=== PATIENT | male | born 1960 | race Hispanic/Latino ===

== ENCOUNTER 2020-12-17 14:03 | Inpatient (IN) | payer BC ==
[~2020-12-17] VITALS: Ht 165.1 cm; Wt 62.6 kg
[2020-12-17] MEDS ORDERED: SODIUM CHLORIDE 0.9% 1000ML 1,000 ML IV STA ×2 (15:45)
[2020-12-17 16:22] LABS: BASOPHILS % 0.2 % (0.0-1.0); HEMATOCRIT 40.5 % (38.2-49.6); HEMOGLOBIN 13.7 g/dL (14.0-18.0); LYMPHOCYTES # (AUTO) 0.5 (1.0-3.2); LYMPHOCYTES % 5.3 % (18.0-39.1); MEAN CORPUSCULAR HEMOGLOBIN 29.2 pg (28-32); MEAN CORPUSCULAR HGB CONC 33.8 g/dL (31-35); MEAN CORPUSCULAR VOLUME 86.4 fL (81-99); MONOCYTES # (AUTO) 0.2 (0.2-0.8); MONOCYTES % 2.2 % (4.4-11.3); NEUTROPHILS # (AUTO) 9.1 (2.1-6.9); NEUTROPHILS % 91.6 % (38.7-80.0); PLATELET COUNT 171 x10e3/uL (140-360); RED BLOOD COUNT 4.69 x10e6/uL (4.3-5.7); RED CELL DISTRIBUTION WIDTH 12.7 % (11.7-14.4)
[2020-12-17 16:38] LABS: ALBUMIN 2.8 g/dL (3.5-5.0); ALBUMIN/GLOBULIN RATIO 0.7 (0.8-2.0); ANION GAP 17.4 mmol/L (8-16); CALCIUM 8.4 mg/dL (8.4-10.2); CREATININE, SERUM 1.29 mg/dL (0.72-1.25); POTASSIUM 4.4 mmol/L (3.5-5.1)
[2020-12-17 16:45] LABS: CREATINE KINASE MB 1.7 ng/mL (0-5.0)
[2020-12-17] MEDS ORDERED: DEXAMETHASONE SOD PHOS 10 MG/1 ML VIAL IV ONE (16:45)
[2020-12-17] MEDS ORDERED: CEFTRIAXONE SOD 2 GM VIAL ONE (20:59)
[2020-12-17] MEDS ORDERED: SODIUM CHLORIDE 0.9% 0 ML ONE (20:59)
[2020-12-17] MEDS: ENOXAPARIN 30 MG/0.3 ML SYR SC SCH (21:35)
[2020-12-17 22:40] VITALS: BP 106/75
[2020-12-17] MEDS ORDERED: DEXTROSE 50% SYRINGE 50 ML IV PRN (23:00)
[2020-12-17] MEDS ORDERED: INSULIN GLARGINE 100 UNITS/ML VIAL SQ ONE (23:00)
[2020-12-17] MEDS ORDERED: ONDANSETRON HCL INJ 2MG/ML 2ML 2 MG/ML VIAL IV PRN (23:00)
[2020-12-17] MEDS ORDERED: PREDNISONE 20 MG TAB PO ONE (23:00)
[2020-12-18] VITALS (7 sets, daily range): BP systolic 95–134; BP diastolic 58–87
[2020-12-18] MEDS ORDERED: PREDNISONE 20 MG TAB PO ONE (03:30)
[2020-12-18 03:34] LABS: CREATINE KINASE MB 2.7 ng/mL (0-5.0)
[2020-12-18 05:04] LABS: BASOPHILS % 0.1 % (0.0-1.0); HEMATOCRIT 38.7 % (38.2-49.6); HEMOGLOBIN 13.2 g/dL (14.0-18.0); LYMPHOCYTES # (AUTO) 0.4 (1.0-3.2); LYMPHOCYTES % 3.3 % (18.0-39.1); MEAN CORPUSCULAR HEMOGLOBIN 29.7 pg (28-32); MEAN CORPUSCULAR HGB CONC 34.1 g/dL (31-35); MONOCYTES # (AUTO) 0.3 (0.2-0.8); MONOCYTES % 2.6 % (4.4-11.3); NEUTROPHILS # (AUTO) 10.7 (2.1-6.9); NEUTROPHILS % 93.4 % (38.7-80.0); PLATELET COUNT 209 x10e3/uL (140-360); RED BLOOD COUNT 4.45 x10e6/uL (4.3-5.7); RED CELL DISTRIBUTION WIDTH 12.7 % (11.7-14.4)
[2020-12-18 05:33] LABS: ALANINE AMINOTRANSFERASE 20 IU/L (0-55); ALBUMIN 2.6 g/dL (3.5-5.0); ALBUMIN/GLOBULIN RATIO 0.6 (0.8-2.0); ALKALINE PHOSPHATASE 55 IU/L (40-150); ANION GAP 17.5 mmol/L (8-16); BLOOD UREA NITROGEN 21 mg/dL (7-26); BUN/CREATININE RATIO 23 (6-25); CALCIUM 8.2 mg/dL (8.4-10.2); CARBON DIOXIDE 18 mmol/L (22-29); CHLORIDE 102 mmol/L (98-107); CREATININE, SERUM 0.91 mg/dL (0.72-1.25); EST GLOMERULAR FILTRATION RATE > 60 ML/MIN (60-); GLUCOSE 399 mg/dL (74-118); POTASSIUM 4.5 mmol/L (3.5-5.1); SODIUM 133 mmol/L (136-145)
[2020-12-18] MEDS: CEFTRIAXONE SOD 2 GM/NS 100 ML 100 ML IV SCH (08:42)
[2020-12-18] MEDS: ASCORBIC ACID 500 MG TAB PO SCH ×2 (08:42→17:31)
[2020-12-18] MEDS: AZITHROMYCIN 500MG/NS 250 ML 250 ML IV SCH (08:42)
[2020-12-18] MEDS: ENOXAPARIN 30 MG/0.3 ML SYR SC SCH ×2 (08:42→17:31)
[2020-12-18] MEDS: ZINC SULFATE 220 MG CAP PO SCH (08:42)
[2020-12-18] MEDS ORDERED: SODIUM CHLORIDE 0.9% 250ML 250 ML ONE (08:43)
[2020-12-18] MEDS: INSULIN REGULAR, HUMAN 100 UNIT/1 ML 3ML VIAL SQ SCH ×4 (08:43→21:54)
[2020-12-18] MEDS ORDERED: REMDESIVIR 200MG/NS 100ML 200 MG IV ONE (10:00)
[2020-12-18 11:42] LABS: CREATINE KINASE MB 2.3 ng/mL (0-5.0)
[2020-12-18] MEDS: ACETAMINOPHEN 325 MG TAB PO PRN (18:22)
[2020-12-18] MEDS: INSULIN GLARGINE 100 UNITS/ML VIAL SQ SCH (21:51)
[2020-12-19] VITALS (7 sets, daily range): BP systolic 99–139; BP diastolic 53–83
[2020-12-19] MEDS: INSULIN REGULAR, HUMAN 100 UNIT/1 ML 3ML VIAL SQ SCH ×4 (07:30→21:00)
[2020-12-19] MEDS: ASCORBIC ACID 500 MG TAB PO SCH ×2 (08:36→18:17)
[2020-12-19] MEDS: ENOXAPARIN 30 MG/0.3 ML SYR SC SCH (08:36)
[2020-12-19] MEDS: CEFTRIAXONE SOD 2 GM/NS 100 ML 100 ML IV SCH (08:36)
[2020-12-19] MEDS: ZINC SULFATE 220 MG CAP PO SCH (08:36)
[2020-12-19] MEDS: AZITHROMYCIN 500MG/NS 250 ML 250 ML IV SCH (08:36)
[2020-12-19 09:31] LABS: BASOPHILS % 0.1 % (0.0-1.0); HEMATOCRIT 37.3 % (38.2-49.6); HEMOGLOBIN 12.7 g/dL (14.0-18.0); LYMPHOCYTES # (AUTO) 0.7 (1.0-3.2); MEAN CORPUSCULAR HEMOGLOBIN 29.6 pg (28-32); MEAN CORPUSCULAR VOLUME 86.9 fL (81-99); MONOCYTES # (AUTO) 0.5 (0.2-0.8); MONOCYTES % 3.2 % (4.4-11.3); NEUTROPHILS % 90.5 % (38.7-80.0); PLATELET COUNT 233 x10e3/uL (140-360); RED BLOOD COUNT 4.29 x10e6/uL (4.3-5.7); RED CELL DISTRIBUTION WIDTH 12.9 % (11.7-14.4)
[2020-12-19 09:55] LABS: ALANINE AMINOTRANSFERASE 19 IU/L (0-55); ALBUMIN 2.2 g/dL (3.5-5.0); ALBUMIN/GLOBULIN RATIO 0.6 (0.8-2.0); ALKALINE PHOSPHATASE 46 IU/L (40-150); ANION GAP 13.8 mmol/L (8-16); BLOOD UREA NITROGEN 13 mg/dL (7-26); BUN/CREATININE RATIO 20 (6-25); CALCIUM 7.6 mg/dL (8.4-10.2); CARBON DIOXIDE 21 mmol/L (22-29); CHLORIDE 98 mmol/L (98-107); CREATININE, SERUM 0.65 mg/dL (0.72-1.25); EST GLOMERULAR FILTRATION RATE > 60 ML/MIN (60-); GLUCOSE 160 mg/dL (74-118); POTASSIUM 3.8 mmol/L (3.5-5.1); SODIUM 129 mmol/L (136-145)
[2020-12-19] MEDS: REMDESIVIR 100MG/NS 100ML 100 MG IV SCH (11:54)
[2020-12-19] MEDS: ACETAMINOPHEN 325 MG TAB PO PRN (14:45)
[2020-12-19] MEDS ORDERED: SODIUM CHLORIDE 0.9% 50ML 50 ML ONE (18:23)
[2020-12-19] MEDS ORDERED: IOPAMIDOL 370 MG/ML 200 ML INFUS..BTL INJ ONE (18:24)
[2020-12-19] MEDS: ENOXAPARIN INJ 80 MG/0.8 ML SYR SC SCH (20:56)
[2020-12-19] MEDS: INSULIN GLARGINE 100 UNITS/ML VIAL SQ SCH (21:00)
[2020-12-20] VITALS (7 sets, daily range): BP systolic 112–125; BP diastolic 71–79
[2020-12-20 05:59] LABS: BASOPHILS % 0.2 % (0.0-1.0); HEMATOCRIT 36.8 % (38.2-49.6); HEMOGLOBIN 12.6 g/dL (14.0-18.0); LYMPHOCYTES # (AUTO) 0.9 (1.0-3.2); LYMPHOCYTES % 8.7 % (18.0-39.1); MEAN CORPUSCULAR HEMOGLOBIN 29.2 pg (28-32); MEAN CORPUSCULAR HGB CONC 34.2 g/dL (31-35); MEAN CORPUSCULAR VOLUME 85.4 fL (81-99); MONOCYTES # (AUTO) 0.6 (0.2-0.8); MONOCYTES % 5.2 % (4.4-11.3); NEUTROPHILS # (AUTO) 8.7 (2.1-6.9); PLATELET COUNT 248 x10e3/uL (140-360); RED BLOOD COUNT 4.31 x10e6/uL (4.3-5.7); RED CELL DISTRIBUTION WIDTH 12.8 % (11.7-14.4)
[2020-12-20 06:28] LABS: ALANINE AMINOTRANSFERASE 21 IU/L (0-55); ALBUMIN 2.1 g/dL (3.5-5.0); ALBUMIN/GLOBULIN RATIO 0.5 (0.8-2.0); ALKALINE PHOSPHATASE 43 IU/L (40-150); ANION GAP 14.9 mmol/L (8-16); BLOOD UREA NITROGEN 10 mg/dL (7-26); BUN/CREATININE RATIO 16 (6-25); CALCIUM 7.8 mg/dL (8.4-10.2); CARBON DIOXIDE 23 mmol/L (22-29); CHLORIDE 98 mmol/L (98-107); CREATININE, SERUM 0.63 mg/dL (0.72-1.25); EST GLOMERULAR FILTRATION RATE > 60 ML/MIN (60-); GLUCOSE 112 mg/dL (74-118); POTASSIUM 3.9 mmol/L (3.5-5.1); SODIUM 132 mmol/L (136-145)
[2020-12-20] MEDS: INSULIN REGULAR, HUMAN 100 UNIT/1 ML 3ML VIAL SQ SCH ×4 (07:30→21:00)
[2020-12-20] MEDS: AZITHROMYCIN 500MG/NS 250 ML 250 ML IV SCH (08:27)
[2020-12-20] MEDS: ENOXAPARIN INJ 80 MG/0.8 ML SYR SC SCH ×2 (08:28→21:22)
[2020-12-20] MEDS: ZINC SULFATE 220 MG CAP PO SCH (08:28)
[2020-12-20] MEDS: ASCORBIC ACID 500 MG TAB PO SCH ×2 (08:28→16:39)
[2020-12-20] MEDS: CEFTRIAXONE SOD 2 GM/NS 100 ML 100 ML IV SCH (10:18)
[2020-12-20 11:26] LABS: HYPOCHROMASIA SLIGHT; LYMPHOCYTES % (MANUAL) 8 % (19-48); MONOCYTES % (MANUAL) 6 % (3.4-9.0); NEUTROPHILS % (MANUAL) 79 % (40-74); PROMYELOCYTES % (MANUAL) 4 % (0-0)
[2020-12-20 11:27] LABS: PLATELET ESTIMATE ADEQUATE; PLATELET MORPHOLOGY COMMENT FEW LARGE; RBC MORPHOLOGY COMMENT ABNORMAL
[2020-12-20] MEDS: REMDESIVIR 100MG/NS 100ML 100 MG IV SCH (11:59)
[2020-12-20] MEDS ORDERED: CHLORASEPTIC SPRAY 177 ML BTL MM PRN (17:00)
[2020-12-20] MEDS: INSULIN GLARGINE 100 UNITS/ML VIAL SQ SCH (21:00)
[2020-12-20] MEDS ORDERED: MELATONIN 5 MG TABLET PO SCH (21:00)
[2020-12-20] MEDS: ACETAMINOPHEN 325 MG TAB PO PRN (23:14)
[2020-12-21] VITALS (10 sets, daily range): BP systolic 111–158; BP diastolic 61–126
[2020-12-21 04:52] LABS: BASOPHILS # (AUTO) 0.1 (0.0-0.1); BASOPHILS % 0.4 % (0.0-1.0); EOSINOPHILS % 0.2 % (0.0-6.0); HEMATOCRIT 39.3 % (38.2-49.6); HEMOGLOBIN 13.5 g/dL (14.0-18.0); LYMPHOCYTES % 8.3 % (18.0-39.1); MEAN CORPUSCULAR HEMOGLOBIN 30.2 pg (28-32); MEAN CORPUSCULAR HGB CONC 34.4 g/dL (31-35); MEAN CORPUSCULAR VOLUME 87.9 fL (81-99); MONOCYTES # (AUTO) 0.8 (0.2-0.8); MONOCYTES % 6.3 % (4.4-11.3); NEUTROPHILS # (AUTO) 9.9 (2.1-6.9); NEUTROPHILS % 81.2 % (38.7-80.0); PLATELET COUNT 289 x10e3/uL (140-360); RED BLOOD COUNT 4.47 x10e6/uL (4.3-5.7); RED CELL DISTRIBUTION WIDTH 12.6 % (11.7-14.4)
[2020-12-21 05:13] LABS: ALANINE AMINOTRANSFERASE 27 IU/L (0-55); ALBUMIN 2.3 g/dL (3.5-5.0); ALBUMIN/GLOBULIN RATIO 0.6 (0.8-2.0); ALKALINE PHOSPHATASE 56 IU/L (40-150); ANION GAP 14.8 mmol/L (8-16); BLOOD UREA NITROGEN 11 mg/dL (7-26); BUN/CREATININE RATIO 17 (6-25); CARBON DIOXIDE 24 mmol/L (22-29); CHLORIDE 97 mmol/L (98-107); CREATININE, SERUM 0.63 mg/dL (0.72-1.25); EST GLOMERULAR FILTRATION RATE > 60 ML/MIN (60-); GLUCOSE 118 mg/dL (74-118); POTASSIUM 3.8 mmol/L (3.5-5.1); SODIUM 132 mmol/L (136-145)
[2020-12-21] MEDS: ZINC SULFATE 220 MG CAP PO SCH (08:46)
[2020-12-21] MEDS: ENOXAPARIN INJ 80 MG/0.8 ML SYR SC SCH ×2 (08:46→21:17)
[2020-12-21] MEDS: CEFTRIAXONE SOD 2 GM/NS 100 ML 100 ML IV SCH (08:46)
[2020-12-21] MEDS: ASCORBIC ACID 500 MG TAB PO SCH ×2 (08:46→16:53)
[2020-12-21] MEDS: INSULIN REGULAR, HUMAN 100 UNIT/1 ML 3ML VIAL SQ SCH ×4 (08:47→20:30)
[2020-12-21] MEDS: REMDESIVIR 100MG/NS 100ML 100 MG IV SCH (10:06)
[2020-12-21] MEDS: AZITHROMYCIN 500MG/NS 250 ML 250 ML IV SCH (11:11)
[2020-12-21] MEDS: ZOLPIDEM TARTRATE 5 MG TAB PO SCH (21:00)
[2020-12-21] MEDS: INSULIN GLARGINE 100 UNITS/ML VIAL SQ SCH (21:21)
[2020-12-22] VITALS (23 sets, daily range): BP systolic 76–135; BP diastolic 59–77
[2020-12-22] MEDS ORDERED: DEXMEDETOMIDINE 200MCG/NS 50ML 50 ML IV ONE ×2 (00:20→04:20)
[2020-12-22] MEDS: DEXMEDETOMIDINE HCL 200 MCG in SODIUM CHLORIDE 0.9% 50ML 48 ML IV SCH ×2 (01:28→04:26)
[2020-12-22 05:00] LABS: BASOPHILS % 0.3 % (0.0-1.0); EOSINOPHILS % 0.1 % (0.0-6.0); HEMATOCRIT 36.3 % (38.2-49.6); HEMOGLOBIN 12.6 g/dL (14.0-18.0); LYMPHOCYTES # (AUTO) 1.3 (1.0-3.2); MEAN CORPUSCULAR HGB CONC 34.7 g/dL (31-35); MEAN CORPUSCULAR VOLUME 86.4 fL (81-99); MONOCYTES # (AUTO) 0.7 (0.2-0.8); MONOCYTES % 4.2 % (4.4-11.3); NEUTROPHILS # (AUTO) 13.2 (2.1-6.9); NEUTROPHILS % 84.4 % (38.7-80.0); PLATELET COUNT 304 x10e3/uL (140-360); RED CELL DISTRIBUTION WIDTH 12.6 % (11.7-14.4)
[2020-12-22 05:10] LABS: INR 1.19; PROTHROMBIN TIME 15.9 seconds (11.9-14.5)
[2020-12-22 05:11] LABS: PARTIAL THROMBOPLASTIN TIME 31.4 seconds (23.8-35.5)
[2020-12-22 05:34] LABS: ALANINE AMINOTRANSFERASE 27 IU/L (0-55); ALBUMIN/GLOBULIN RATIO 0.5 (0.8-2.0); ALKALINE PHOSPHATASE 68 IU/L (40-150); ANION GAP 14.7 mmol/L (8-16); BLOOD UREA NITROGEN 8 mg/dL (7-26); BUN/CREATININE RATIO 14 (6-25); CARBON DIOXIDE 26 mmol/L (22-29); CHLORIDE 101 mmol/L (98-107); CREATININE, SERUM 0.59 mg/dL (0.72-1.25); EST GLOMERULAR FILTRATION RATE > 60 ML/MIN (60-); GLUCOSE 82 mg/dL (74-118); POTASSIUM 3.7 mmol/L (3.5-5.1); SODIUM 138 mmol/L (136-145)
[2020-12-22] MEDS ORDERED: SIMVASTATIN20 MG PO (06:38)
[2020-12-22] MEDS ORDERED: JANUVIA100 MG PO (06:38)
[2020-12-22] MEDS ORDERED: METFORMIN HCL1000 MG PO (06:38)
[2020-12-22] MEDS ORDERED: PIOGLITAZONE HC15 MG PO (06:38)
[2020-12-22] MEDS ORDERED: GLYBURIDE5 MG PO (06:38)
[2020-12-22] MEDS ORDERED: ENALAPRIL MALE2.5 MG PO (06:38)
[2020-12-22] MEDS: INSULIN REGULAR, HUMAN 100 UNIT/1 ML 3ML VIAL SQ SCH ×4 (07:30→21:48)
[2020-12-22 07:45] LABS: LYMPHOCYTES % (MANUAL) 5 % (19-48); METAMYELOCYTES % (MANUAL) 1 % (0-0); MONOCYTES % (MANUAL) 4 % (3.4-9.0); NEUTROPHILS % (MANUAL) 89 % (40-74)
[2020-12-22 07:46] LABS: PLATELET ESTIMATE ADEQUATE; PLATELET MORPHOLOGY COMMENT NORMAL; RBC MORPHOLOGY COMMENT NORMAL
[2020-12-22] MEDS: REMDESIVIR 100MG/NS 100ML 100 MG IV SCH (09:08)
[2020-12-22] MEDS: FAMOTIDINE 20 MG/2 ML VIAL IV SCH (09:08)
[2020-12-22] MEDS: ENOXAPARIN INJ 80 MG/0.8 ML SYR SC SCH ×2 (09:08→21:47)
[2020-12-22] MEDS: ASCORBIC ACID 500 MG TAB PO SCH ×2 (09:08→16:40)
[2020-12-22] MEDS: AZITHROMYCIN 500MG/NS 250 ML 250 ML IV SCH (09:08)
[2020-12-22] MEDS: ZINC SULFATE 220 MG CAP PO SCH (09:08)
[2020-12-22] MEDS: CEFTRIAXONE SOD 2 GM/NS 100 ML 100 ML IV SCH (09:08)
[2020-12-22] MEDS: CHOLECALCIFEROL 400 UNIT TAB PO SCH (09:08)
[2020-12-22] MEDS ORDERED: DEXMEDETOMIDINE 200MCG/NS 50ML 50 ML IV SCH (09:15)
[2020-12-22] MEDS ORDERED: SODIUM CHLORIDE 0.9% 1000ML 1,000 ML ONE (10:28)
[2020-12-22] MEDS: FENTANYL 2000MCG/NS 250 250 ML IV SCH ×2 (11:25→17:36)
[2020-12-22] MEDS: MIDAZOLAM HCL 5MG/ML 10ML VIAL 100 ML IV SCH ×3 (11:26→21:50)
[2020-12-22] MEDS ORDERED: LACTATED RINGER'S 1,000 ML INJ STA (12:32)
[2020-12-22] MEDS: ACETAMINOPHEN 325 MG TAB PO PRN ×2 (13:28→23:00)
[2020-12-22] MEDS ORDERED: NOREPINEPHRINE 8 MG/D5W 250 ML 250 ML ONE (14:42)
[2020-12-22] MEDS: NOREPINEPHRINE 8 MG/D5W 250 ML 250 ML IV SCH (15:02)
[2020-12-22 16:16] LABS: ABG HCO3 26 mmol/L (22-26); ABG PCO2 50 mmHg (35-45); ABG PH 7.33 (7.35-7.45); ABG PO2 66 mmHg (80-105); ABG TCO2 28
[2020-12-22] MEDS: ROCURONIUM BROMIDE 1,250 MG in SODIUM CHLORIDE 0.9% 250ML 125 ML IV SCH (16:28)
[2020-12-22 17:12] LABS: CLARITY,URINE SL CLOUDY (CLEAR); COLOR,URINE YELLOW (YELLOW); KETONES,URINE 1+ (NEGATIVE); LEUKOCYTE ESTERASE ,URINE NEGATIVE (NEGATIVE); NITRITE,URINE NEGATIVE (NEGATIVE); PROTEIN,URINE DIPSTICK 2+ (NEGATIVE); URINE UROBILINOGEN 0.2 mg/dL (0.2 - 1)
[2020-12-22 17:27] LABS: AMORPHOUS SEDIMENT,URINE MODERATE (FEW); BACTERIA,URINE MODERATE /HPF; RBC,URINE 0-5 /HPF (0-5)
[2020-12-22] MEDS: ZOLPIDEM TARTRATE 5 MG TAB PO SCH (21:00)
[2020-12-22] MEDS: INSULIN GLARGINE 100 UNITS/ML VIAL SQ SCH (21:49)
[2020-12-23] VITALS (16 sets, daily range): BP systolic 93–148; BP diastolic 59–76
[2020-12-23] MEDS: FENTANYL 2000MCG/NS 250 250 ML IV SCH ×3 (02:06→20:20)
[2020-12-23] MEDS: MIDAZOLAM HCL 5MG/ML 10ML VIAL 100 ML IV SCH ×3 (04:55→20:20)
[2020-12-23 05:08] LABS: BASOPHILS % 0.2 % (0.0-1.0); EOSINOPHILS # (AUTO) 0.1 (0.0-0.4); EOSINOPHILS % 0.6 % (0.0-6.0); HEMATOCRIT 39.8 % (38.2-49.6); HEMOGLOBIN 13.2 g/dL (14.0-18.0); LYMPHOCYTES # (AUTO) 0.9 (1.0-3.2); LYMPHOCYTES % 5.1 % (18.0-39.1); MEAN CORPUSCULAR HEMOGLOBIN 31.1 pg (28-32); MEAN CORPUSCULAR HGB CONC 33.2 g/dL (31-35); MEAN CORPUSCULAR VOLUME 93.6 fL (81-99); MONOCYTES # (AUTO) 0.9 (0.2-0.8); MONOCYTES % 5.2 % (4.4-11.3); NEUTROPHILS # (AUTO) 15.8 (2.1-6.9); NEUTROPHILS % 87.8 % (38.7-80.0); PLATELET COUNT 216 x10e3/uL (140-360); RED BLOOD COUNT 4.25 x10e6/uL (4.3-5.7); RED CELL DISTRIBUTION WIDTH 12.4 % (11.7-14.4)
[2020-12-23] MEDS: ACETAMINOPHEN 325 MG TAB PO PRN ×2 (05:22→14:26)
[2020-12-23 05:31] LABS: ALANINE AMINOTRANSFERASE 294 IU/L (0-55); ALBUMIN 1.9 g/dL (3.5-5.0); ALBUMIN/GLOBULIN RATIO 0.5 (0.8-2.0); ALKALINE PHOSPHATASE 86 IU/L (40-150); ANION GAP 15.7 mmol/L (8-16); BLOOD UREA NITROGEN 26 mg/dL (7-26); BUN/CREATININE RATIO 41 (6-25); CALCIUM 7.9 mg/dL (8.4-10.2); CARBON DIOXIDE 25 mmol/L (22-29); CHLORIDE 104 mmol/L (98-107); CREATININE, SERUM 0.63 mg/dL (0.72-1.25); EST GLOMERULAR FILTRATION RATE > 60 ML/MIN (60-); GLUCOSE 100 mg/dL (74-118); POTASSIUM 4.7 mmol/L (3.5-5.1); SODIUM 140 mmol/L (136-145)
[2020-12-23] MEDS: INSULIN REGULAR, HUMAN 100 UNIT/1 ML 3ML VIAL SQ SCH ×4 (07:15→21:30)
[2020-12-23] MEDS: CHOLECALCIFEROL 400 UNIT TAB PO SCH (08:09)
[2020-12-23] MEDS: DEXAMETHASONE SOD PHOS 10 MG/1 ML VIAL IV SCH (08:09)
[2020-12-23] MEDS: FAMOTIDINE 20 MG/2 ML VIAL IV SCH (08:09)
[2020-12-23] MEDS: ASCORBIC ACID 500 MG TAB PO SCH ×2 (08:09→16:10)
[2020-12-23] MEDS: ZINC SULFATE 220 MG CAP PO SCH (08:10)
[2020-12-23] MEDS: ENOXAPARIN INJ 80 MG/0.8 ML SYR SC SCH ×2 (08:10→21:00)
[2020-12-23] MEDS: REMDESIVIR 100MG/NS 100ML 100 MG IV SCH (09:43)
[2020-12-23 10:12] LABS: ABG PCO2 64 mmHg (35-45); ABG PH 7.22 (7.35-7.45); ABG PO2 57 mmHg (80-105)
[2020-12-23 10:13] LABS: ABG HCO3 26 mmol/L (22-26); ABG TCO2 28
[2020-12-23] MEDS ORDERED: ALBUMIN 25% 25GM 100ML 0.25 GM/ML BTL IV SCH (10:30)
[2020-12-23] MEDS: VANCOMYCIN 1GM/NS 250 ML 250 ML IV SCH (11:57)
[2020-12-23] MEDS: ALBUMIN 25% 25GM 100ML 100 ML IV SCH ×2 (11:57→18:41)
[2020-12-23] MEDS: FUROSEMIDE INJ 10 MG/ML 4 ML VIAL IV SCH (11:57)
[2020-12-23] MEDS: MEROPENEM 1GM 100 ML IV SCH ×2 (11:57→17:01)
[2020-12-23] MEDS: ROCURONIUM BROMIDE 1,250 MG in SODIUM CHLORIDE 0.9% 250ML 125 ML IV SCH (12:29)
[2020-12-23 16:27] LABS: ABG HCO3 31 mmol/L (22-26); ABG PCO2 64 mmHg (35-45); ABG PO2 80 mmHg (80-105); ABG TCO2 33
[2020-12-23] MEDS: ZOLPIDEM TARTRATE 5 MG TAB PO SCH (21:00)
[2020-12-23] MEDS: INSULIN GLARGINE 100 UNITS/ML VIAL SQ SCH (21:30)
[2020-12-23] MEDS ORDERED: FUROSEMIDE INJ 10 MG/ML 4 ML VIAL ONE (22:21)
[2020-12-24] VITALS (16 sets, daily range): BP systolic 89–132; BP diastolic 59–70
[2020-12-24] MEDS: FUROSEMIDE INJ 10 MG/ML 4 ML VIAL IV SCH (00:34)
[2020-12-24] MEDS: VANCOMYCIN 1GM/NS 250 ML 250 ML IV SCH ×3 (00:53→23:24)
[2020-12-24] MEDS: NOREPINEPHRINE 8 MG/D5W 250 ML 250 ML IV SCH ×2 (00:53→14:45)
[2020-12-24] MEDS: MEROPENEM 1GM 100 ML IV SCH ×3 (02:30→17:09)
[2020-12-24] MEDS: MIDAZOLAM HCL 5MG/ML 10ML VIAL 100 ML IV SCH ×4 (03:45→23:09)
[2020-12-24] MEDS: FENTANYL 2000MCG/NS 250 250 ML IV SCH ×3 (03:45→21:06)
[2020-12-24] MEDS: ALBUMIN 25% 25GM 100ML 100 ML IV SCH (04:12)
[2020-12-24 06:56] LABS: BASOPHILS % 0.1 % (0.0-1.0); HEMATOCRIT 28.9 % (38.2-49.6); HEMOGLOBIN 9.3 g/dL (14.0-18.0); LYMPHOCYTES # (AUTO) 0.6 (1.0-3.2); LYMPHOCYTES % 3.5 % (18.0-39.1); MEAN CORPUSCULAR HEMOGLOBIN 29.4 pg (28-32); MEAN CORPUSCULAR HGB CONC 32.2 g/dL (31-35); MEAN CORPUSCULAR VOLUME 91.5 fL (81-99); MONOCYTES # (AUTO) 0.3 (0.2-0.8); MONOCYTES % 2.1 % (4.4-11.3); NEUTROPHILS # (AUTO) 14.6 (2.1-6.9); NEUTROPHILS % 92.6 % (38.7-80.0); PLATELET COUNT 209 x10e3/uL (140-360); RED BLOOD COUNT 3.16 x10e6/uL (4.3-5.7); RED CELL DISTRIBUTION WIDTH 13.7 % (11.7-14.4)
[2020-12-24 07:00] LABS: ABG PCO2 55 mmHg (35-45); ABG PH 7.38 (7.35-7.45); ABG PO2 75 mmHg (80-105)
[2020-12-24 07:01] LABS: ABG HCO3 32 mmol/L (22-26); ABG TCO2 34
[2020-12-24 07:22] LABS: ALANINE AMINOTRANSFERASE 19 IU/L (0-55); ALBUMIN 2.3 g/dL (3.5-5.0); ALBUMIN/GLOBULIN RATIO 0.7 (0.8-2.0); ALKALINE PHOSPHATASE 71 IU/L (40-150); ANION GAP 12.9 mmol/L (8-16); BLOOD UREA NITROGEN 20 mg/dL (7-26); BUN/CREATININE RATIO 24 (6-25); CALCIUM 7.2 mg/dL (8.4-10.2); CARBON DIOXIDE 30 mmol/L (22-29); CHLORIDE 100 mmol/L (98-107); CREATININE, SERUM 0.83 mg/dL (0.72-1.25); EST GLOMERULAR FILTRATION RATE > 60 ML/MIN (60-); GLUCOSE 339 mg/dL (74-118); POTASSIUM 3.9 mmol/L (3.5-5.1); SODIUM 139 mmol/L (136-145)
[2020-12-24] MEDS: INSULIN REGULAR, HUMAN 100 UNIT/1 ML 3ML VIAL SQ SCH ×4 (07:29→21:05)
[2020-12-24] MEDS: ENOXAPARIN INJ 80 MG/0.8 ML SYR SC SCH ×2 (08:00→21:05)
[2020-12-24] MEDS: ASCORBIC ACID 500 MG TAB PO SCH ×2 (08:00→16:17)
[2020-12-24] MEDS: DEXAMETHASONE SOD PHOS 10 MG/1 ML VIAL IV SCH (08:00)
[2020-12-24] MEDS: FAMOTIDINE 20 MG/2 ML VIAL IV SCH (08:00)
[2020-12-24] MEDS: CHOLECALCIFEROL 400 UNIT TAB PO SCH (08:00)
[2020-12-24] MEDS: ZINC SULFATE 220 MG CAP PO SCH (08:00)
[2020-12-24 09:58] LABS: LYMPHOCYTES % (MANUAL) 1 % (19-48); MONOCYTES % (MANUAL) 3 % (3.4-9.0); NEUTROPHILS % (MANUAL) 95 % (40-74); PLATELET ESTIMATE ADEQUATE; RBC MORPHOLOGY COMMENT NORMAL
[2020-12-24 09:59] LABS: PLATELET MORPHOLOGY COMMENT FEW EDTA CLUMPING
[2020-12-24] MEDS: ROCURONIUM BROMIDE 1,250 MG in SODIUM CHLORIDE 0.9% 250ML 125 ML IV SCH (10:47)
[2020-12-24] MEDS: ZOLPIDEM TARTRATE 5 MG TAB PO SCH (21:00)
[2020-12-24] MEDS: INSULIN GLARGINE 100 UNITS/ML VIAL SQ SCH (21:05)
[2020-12-25] VITALS (22 sets, daily range): BP systolic 94–153; BP diastolic 54–71
[2020-12-25] MEDS: MEROPENEM 1GM 100 ML IV SCH ×2 (02:34→16:08)
[2020-12-25] MEDS: MIDAZOLAM HCL 5MG/ML 10ML VIAL 100 ML IV SCH ×2 (04:05→09:28)
[2020-12-25] MEDS: FENTANYL 2000MCG/NS 250 250 ML IV SCH ×2 (04:05→17:19)
[2020-12-25 05:40] LABS: BASOPHILS % 0.2 % (0.0-1.0); HEMATOCRIT 31.2 % (38.2-49.6); HEMOGLOBIN 9.9 g/dL (14.0-18.0); LYMPHOCYTES # (AUTO) 0.7 (1.0-3.2); LYMPHOCYTES % 3.6 % (18.0-39.1); MEAN CORPUSCULAR HEMOGLOBIN 29.6 pg (28-32); MEAN CORPUSCULAR HGB CONC 31.7 g/dL (31-35); MEAN CORPUSCULAR VOLUME 93.1 fL (81-99); MONOCYTES # (AUTO) 0.5 (0.2-0.8); MONOCYTES % 2.5 % (4.4-11.3); NEUTROPHILS # (AUTO) 16.9 (2.1-6.9); NEUTROPHILS % 92.6 % (38.7-80.0); PLATELET COUNT 241 x10e3/uL (140-360); RED BLOOD COUNT 3.35 x10e6/uL (4.3-5.7); RED CELL DISTRIBUTION WIDTH 13.9 % (11.7-14.4)
[2020-12-25 06:02] LABS: ALANINE AMINOTRANSFERASE 20 IU/L (0-55); ALBUMIN 2.1 g/dL (3.5-5.0); ALBUMIN/GLOBULIN RATIO 0.5 (0.8-2.0); ALKALINE PHOSPHATASE 78 IU/L (40-150); ANION GAP 11.6 mmol/L (8-16); BLOOD UREA NITROGEN 34 mg/dL (7-26); BUN/CREATININE RATIO 44 (6-25); CALCIUM 7.5 mg/dL (8.4-10.2); CARBON DIOXIDE 33 mmol/L (22-29); CHLORIDE 103 mmol/L (98-107); CREATININE, SERUM 0.77 mg/dL (0.72-1.25); EST GLOMERULAR FILTRATION RATE > 60 ML/MIN (60-); GLUCOSE 187 mg/dL (74-118); POTASSIUM 4.6 mmol/L (3.5-5.1); SODIUM 143 mmol/L (136-145)
[2020-12-25 06:38] LABS: ABG HCO3 34 mmol/L (22-26); ABG PCO2 62 mmHg (35-45); ABG PH 7.35 (7.35-7.45); ABG PO2 76 mmHg (80-105); ABG TCO2 36
[2020-12-25] MEDS: DEXAMETHASONE SOD PHOS 10 MG/1 ML VIAL IV SCH (08:00)
[2020-12-25] MEDS: FAMOTIDINE 20 MG/2 ML VIAL IV SCH (08:00)
[2020-12-25] MEDS: CHOLECALCIFEROL 400 UNIT TAB PO SCH (08:00)
[2020-12-25] MEDS: ZINC SULFATE 220 MG CAP PO SCH (08:01)
[2020-12-25] MEDS: ASCORBIC ACID 500 MG TAB PO SCH ×2 (08:01→16:06)
[2020-12-25] MEDS: ENOXAPARIN INJ 80 MG/0.8 ML SYR SC SCH ×2 (08:01→20:35)
[2020-12-25] MEDS: ROCURONIUM BROMIDE 1,250 MG in SODIUM CHLORIDE 0.9% 250ML 125 ML IV SCH (09:21)
[2020-12-25] MEDS: INSULIN REGULAR, HUMAN 100 UNIT/1 ML 3ML VIAL SQ SCH ×2 (12:00→20:34)
[2020-12-25] MEDS: NOREPINEPHRINE 8 MG/D5W 250 ML 250 ML IV SCH (14:45)
[2020-12-25] MEDS: VANCOMYCIN 1GM/NS 250 ML 250 ML IV SCH ×2 (16:08→23:21)
[2020-12-25] MEDS: INSULIN GLARGINE 100 UNITS/ML VIAL SQ SCH (20:35)
[2020-12-25] MEDS: ZOLPIDEM TARTRATE 5 MG TAB PO SCH (20:35)
[2020-12-26] VITALS (16 sets, daily range): BP systolic 90–114; BP diastolic 45–73
[2020-12-26] MEDS: INSULIN REGULAR, HUMAN 100 UNIT/1 ML 3ML VIAL SQ SCH ×4 (00:20→18:00)
[2020-12-26] MEDS: MEROPENEM 1GM 100 ML IV SCH ×3 (01:08→18:43)
[2020-12-26 06:52] LABS: BASOPHILS % 0.1 % (0.0-1.0); HEMATOCRIT 33.7 % (38.2-49.6); HEMOGLOBIN 10.5 g/dL (14.0-18.0); LYMPHOCYTES # (AUTO) 0.4 (1.0-3.2); LYMPHOCYTES % 3.8 % (18.0-39.1); MEAN CORPUSCULAR HEMOGLOBIN 29.6 pg (28-32); MEAN CORPUSCULAR HGB CONC 31.2 g/dL (31-35); MEAN CORPUSCULAR VOLUME 94.9 fL (81-99); MONOCYTES # (AUTO) 0.4 (0.2-0.8); MONOCYTES % 3.7 % (4.4-11.3); NEUTROPHILS # (AUTO) 10.5 (2.1-6.9); NEUTROPHILS % 91.8 % (38.7-80.0); PLATELET COUNT 279 x10e3/uL (140-360); RED BLOOD COUNT 3.55 x10e6/uL (4.3-5.7); RED CELL DISTRIBUTION WIDTH 13.9 % (11.7-14.4)
[2020-12-26 07:02] LABS: ALANINE AMINOTRANSFERASE 35 IU/L (0-55); ALBUMIN 1.9 g/dL (3.5-5.0); ALBUMIN/GLOBULIN RATIO 0.5 (0.8-2.0); ALKALINE PHOSPHATASE 106 IU/L (40-150); BLOOD UREA NITROGEN 38 mg/dL (7-26); BUN/CREATININE RATIO 53 (6-25); CALCIUM 7.4 mg/dL (8.4-10.2); CARBON DIOXIDE 33 mmol/L (22-29); CHLORIDE 104 mmol/L (98-107); CREATININE, SERUM 0.72 mg/dL (0.72-1.25); EST GLOMERULAR FILTRATION RATE > 60 ML/MIN (60-); GLUCOSE 257 mg/dL (74-118); SODIUM 143 mmol/L (136-145)
[2020-12-26 08:43] LABS: ABG HCO3 35 mmol/L (22-26); ABG PCO2 65 mmHg (35-45); ABG PH 7.34 (7.35-7.45); ABG PO2 79 mmHg (80-105); ABG TCO2 37
[2020-12-26] MEDS: CHOLECALCIFEROL 400 UNIT TAB PO SCH (08:54)
[2020-12-26] MEDS: FAMOTIDINE 20 MG/2 ML VIAL IV SCH (08:54)
[2020-12-26] MEDS: ZINC SULFATE 220 MG CAP PO SCH (08:54)
[2020-12-26] MEDS: DEXAMETHASONE SOD PHOS 10 MG/1 ML VIAL IV SCH (08:54)
[2020-12-26] MEDS: ASCORBIC ACID 500 MG TAB PO SCH ×2 (08:54→18:43)
[2020-12-26] MEDS: ENOXAPARIN INJ 80 MG/0.8 ML SYR SC SCH ×2 (08:54→21:16)
[2020-12-26] MEDS: ACETAZOLAMIDE 250 MG TAB PO SCH ×2 (12:22→21:16)
[2020-12-26] MEDS: FUROSEMIDE INJ 10 MG/ML 4 ML VIAL IV SCH ×2 (12:22→21:16)
[2020-12-26] MEDS: ALBUMIN 25% 25GM 100ML 0.25 GM/ML BTL IV SCH ×3 (12:22→21:18)
[2020-12-26] MEDS: VANCOMYCIN 1GM/NS 250 ML 250 ML IV SCH (12:22)
[2020-12-26] MEDS ORDERED: MIDAZOLAM HCL 5MG/ML 10ML VIAL 100 ML BAG IV ONE (12:24)
[2020-12-26] MEDS ORDERED: FENTANYL 2,000 MCG/250 ML BAG ONE (12:24)
[2020-12-26] MEDS ORDERED: VECURONIUM BROMIDE FOR INJ 20 MG VIAL ONE (14:01)
[2020-12-26] MEDS ORDERED: SUCCINYLCHOLINE CHLORIDE 20 MG/ML 10ML VIAL ONE (14:01)
[2020-12-26] MEDS ORDERED: WATER STERILE 10 ML VIAL ONE (14:01)
[2020-12-26] MEDS ORDERED: MIDAZOLAM HCL 2 MG/2 ML VIAL ONE (14:01)
[2020-12-26] MEDS ORDERED: ETOMIDATE 2 MG/ML 10 ML INJ IV ONE (14:01)
[2020-12-26] MEDS: MIDAZOLAM HCL 5MG/ML 10ML VIAL 100 ML IV SCH (17:53)
[2020-12-26] MEDS: ZOLPIDEM TARTRATE 5 MG TAB PO SCH (21:00)
[2020-12-26] MEDS: ROCURONIUM BROMIDE 1,250 MG in SODIUM CHLORIDE 0.9% 250ML 125 ML IV SCH (21:16)
[2020-12-26] MEDS: INSULIN GLARGINE 100 UNITS/ML VIAL SQ SCH (21:16)
[2020-12-27] VITALS (25 sets, daily range): BP systolic 92–189; BP diastolic 51–89
[2020-12-27] MEDS: VANCOMYCIN 1GM/NS 250 ML 250 ML IV SCH ×2 (00:12→12:30)
[2020-12-27] MEDS: INSULIN REGULAR, HUMAN 100 UNIT/1 ML 3ML VIAL SQ SCH ×4 (00:22→17:30)
[2020-12-27] MEDS: MEROPENEM 1GM 100 ML IV SCH ×3 (01:22→17:29)
[2020-12-27 06:34] LABS: BASOPHILS % 0.1 % (0.0-1.0); HEMATOCRIT 32.8 % (38.2-49.6); HEMOGLOBIN 10.1 g/dL (14.0-18.0); LYMPHOCYTES # (AUTO) 0.8 (1.0-3.2); LYMPHOCYTES % 7.3 % (18.0-39.1); MEAN CORPUSCULAR HEMOGLOBIN 29.5 pg (28-32); MEAN CORPUSCULAR HGB CONC 30.8 g/dL (31-35); MEAN CORPUSCULAR VOLUME 95.9 fL (81-99); MONOCYTES # (AUTO) 0.4 (0.2-0.8); MONOCYTES % 3.5 % (4.4-11.3); NEUTROPHILS # (AUTO) 9.8 (2.1-6.9); NEUTROPHILS % 87.9 % (38.7-80.0); PLATELET COUNT 277 x10e3/uL (140-360); RED BLOOD COUNT 3.42 x10e6/uL (4.3-5.7)
[2020-12-27 06:57] LABS: ALANINE AMINOTRANSFERASE 56 IU/L (0-55); ALBUMIN 2.7 g/dL (3.5-5.0); ALBUMIN/GLOBULIN RATIO 0.8 (0.8-2.0); ALKALINE PHOSPHATASE 121 IU/L (40-150); ANION GAP 10.4 mmol/L (8-16); BLOOD UREA NITROGEN 36 mg/dL (7-26); BUN/CREATININE RATIO 51 (6-25); CALCIUM 7.7 mg/dL (8.4-10.2); CARBON DIOXIDE 33 mmol/L (22-29); CHLORIDE 102 mmol/L (98-107); CREATININE, SERUM 0.71 mg/dL (0.72-1.25); EST GLOMERULAR FILTRATION RATE > 60 ML/MIN (60-); GLUCOSE 99 mg/dL (74-118); POTASSIUM 4.4 mmol/L (3.5-5.1); SODIUM 141 mmol/L (136-145)
[2020-12-27] MEDS: MIDAZOLAM HCL 5MG/ML 10ML VIAL 100 ML IV SCH ×2 (08:06→20:26)
[2020-12-27 08:11] LABS: ABG HCO3 35 mmol/L (22-26); ABG PCO2 63 mmHg (35-45); ABG PH 7.35 (7.35-7.45); ABG PO2 96 mmHg (80-105); ABG TCO2 37
[2020-12-27] MEDS: CHOLECALCIFEROL 400 UNIT TAB PO SCH (09:08)
[2020-12-27] MEDS: ASCORBIC ACID 500 MG TAB PO SCH ×2 (09:08→17:29)
[2020-12-27] MEDS: ENOXAPARIN INJ 80 MG/0.8 ML SYR SC SCH ×2 (09:08→20:22)
[2020-12-27] MEDS: ZINC SULFATE 220 MG CAP PO SCH (09:08)
[2020-12-27] MEDS: FAMOTIDINE 20 MG/2 ML VIAL IV SCH (09:08)
[2020-12-27] MEDS: ACETAZOLAMIDE 250 MG TAB PO SCH ×2 (09:08→20:22)
[2020-12-27] MEDS: DEXAMETHASONE SOD PHOS 10 MG/1 ML VIAL IV SCH (09:08)
[2020-12-27] MEDS: FENTANYL 2000MCG/NS 250 250 ML IV SCH (10:14)
[2020-12-27] MEDS: HYDRALAZINE HCL 20 MG/ML VIAL IV PRN (10:50)
[2020-12-27] MEDS ORDERED: PROPOFOL IV EMULSION 10MG/ML 100 ML IV PRN (12:00)
[2020-12-27] MEDS: ROCURONIUM BROMIDE 1,250 MG in SODIUM CHLORIDE 0.9% 250ML 125 ML IV SCH (16:07)
[2020-12-27] MEDS: ZOLPIDEM TARTRATE 5 MG TAB PO SCH (20:22)
[2020-12-27] MEDS: PROPOFOL IV EMULSION 100 ML IV PRN (20:23)
[2020-12-27] MEDS: INSULIN GLARGINE 100 UNITS/ML VIAL SQ SCH (20:35)
[2020-12-28] VITALS (27 sets, daily range): BP systolic 11–164; BP diastolic 58–76
[2020-12-28] MEDS: INSULIN REGULAR, HUMAN 100 UNIT/1 ML 3ML VIAL SQ SCH ×4 (00:12→18:16)
[2020-12-28] MEDS: FENTANYL 2000MCG/NS 250 250 ML IV SCH ×4 (00:13→20:49)
[2020-12-28] MEDS: VANCOMYCIN 1GM/NS 250 ML 250 ML IV SCH ×2 (00:42→11:58)
[2020-12-28] MEDS: PROPOFOL IV EMULSION 100 ML IV PRN (01:13)
[2020-12-28] MEDS: MIDAZOLAM HCL 5MG/ML 10ML VIAL 100 ML IV SCH ×4 (01:14→22:45)
[2020-12-28] MEDS: MEROPENEM 1GM 100 ML IV SCH ×3 (03:11→17:41)
[2020-12-28 05:57] LABS: BASOPHILS % 0.2 % (0.0-1.0); EOSINOPHILS % 0.1 % (0.0-6.0); HEMATOCRIT 30.2 % (38.2-49.6); HEMOGLOBIN 9.7 g/dL (14.0-18.0); LYMPHOCYTES # (AUTO) 0.7 (1.0-3.2); LYMPHOCYTES % 6.9 % (18.0-39.1); MEAN CORPUSCULAR HEMOGLOBIN 31.5 pg (28-32); MEAN CORPUSCULAR HGB CONC 32.1 g/dL (31-35); MEAN CORPUSCULAR VOLUME 98.1 fL (81-99); MONOCYTES # (AUTO) 0.3 (0.2-0.8); MONOCYTES % 3.2 % (4.4-11.3); NEUTROPHILS # (AUTO) 8.8 (2.1-6.9); NEUTROPHILS % 87.7 % (38.7-80.0); PLATELET COUNT 214 x10e3/uL (140-360); RED BLOOD COUNT 3.08 x10e6/uL (4.3-5.7)
[2020-12-28 06:26] LABS: ALANINE AMINOTRANSFERASE 53 IU/L (0-55); ALBUMIN/GLOBULIN RATIO 0.6 (0.8-2.0); ALKALINE PHOSPHATASE 109 IU/L (40-150); BLOOD UREA NITROGEN 30 mg/dL (7-26); BUN/CREATININE RATIO 46 (6-25); CARBON DIOXIDE 27 mmol/L (22-29); CHLORIDE 105 mmol/L (98-107); CREATININE, SERUM 0.65 mg/dL (0.72-1.25); EST GLOMERULAR FILTRATION RATE > 60 ML/MIN (60-); GLUCOSE 142 mg/dL (74-118); SODIUM 138 mmol/L (136-145)
[2020-12-28 07:59] LABS: ABG HCO3 30 mmol/L (22-26); ABG PCO2 62 mmHg (35-45); ABG PO2 142 mmHg (80-105); ABG TCO2 32
[2020-12-28] MEDS: DEXAMETHASONE SOD PHOS 10 MG/1 ML VIAL IV SCH (08:56)
[2020-12-28] MEDS: FAMOTIDINE 20 MG/2 ML VIAL IV SCH (08:56)
[2020-12-28] MEDS: ENOXAPARIN INJ 80 MG/0.8 ML SYR SC SCH ×2 (08:57→20:47)
[2020-12-28] MEDS: ZINC SULFATE 220 MG CAP PO SCH (08:57)
[2020-12-28] MEDS: ASCORBIC ACID 500 MG TAB PO SCH ×2 (08:57→17:32)
[2020-12-28] MEDS: CHOLECALCIFEROL 400 UNIT TAB PO SCH (08:57)
[2020-12-28] MEDS ORDERED: LACTULOSE SYRUP 20 GM/30 ML UDC PO ONE (10:30)
[2020-12-28 15:45] LABS: ABG HCO3 28 mmol/L (22-26); ABG PCO2 52 mmHg (35-45); ABG PH 7.34 (7.35-7.45); ABG PO2 104 mmHg (80-105); ABG TCO2 29
[2020-12-28] MEDS: INSULIN GLARGINE 100 UNITS/ML VIAL SQ SCH (20:47)
[2020-12-29] VITALS (25 sets, daily range): BP systolic 91–183; BP diastolic 54–88
[2020-12-29] MEDS: INSULIN REGULAR, HUMAN 100 UNIT/1 ML 3ML VIAL SQ SCH ×5 (00:30→23:14)
[2020-12-29] MEDS: VANCOMYCIN 1GM/NS 250 ML 250 ML IV SCH ×2 (00:49→12:05)
[2020-12-29] MEDS: PROPOFOL IV EMULSION 100 ML IV PRN ×2 (00:50→03:00)
[2020-12-29] MEDS: HYDRALAZINE HCL 20 MG/ML VIAL IV PRN (00:57)
[2020-12-29] MEDS: ROCURONIUM BROMIDE 1,250 MG in SODIUM CHLORIDE 0.9% 250ML 125 ML IV SCH (03:13)
[2020-12-29] MEDS: MEROPENEM 1GM 100 ML IV SCH ×3 (03:13→17:44)
[2020-12-29] MEDS: FENTANYL 2000MCG/NS 250 250 ML IV SCH ×3 (03:49→17:30)
[2020-12-29] MEDS: MIDAZOLAM HCL 5MG/ML 10ML VIAL 100 ML IV SCH ×4 (03:50→22:00)
[2020-12-29 05:24] LABS: BASOPHILS # (AUTO) 0.1 (0.0-0.1); BASOPHILS % 0.2 % (0.0-1.0); HEMATOCRIT 33.3 % (38.2-49.6); HEMOGLOBIN 10.6 g/dL (14.0-18.0); LYMPHOCYTES # (AUTO) 0.4 (1.0-3.2); LYMPHOCYTES % 1.6 % (18.0-39.1); MEAN CORPUSCULAR HEMOGLOBIN 29.8 pg (28-32); MEAN CORPUSCULAR HGB CONC 31.8 g/dL (31-35); MEAN CORPUSCULAR VOLUME 93.5 fL (81-99); MONOCYTES # (AUTO) 0.6 (0.2-0.8); MONOCYTES % 2.6 % (4.4-11.3); NEUTROPHILS # (AUTO) 22.9 (2.1-6.9); NEUTROPHILS % 94.4 % (38.7-80.0); PLATELET COUNT 279 x10e3/uL (140-360); RED BLOOD COUNT 3.56 x10e6/uL (4.3-5.7); RED CELL DISTRIBUTION WIDTH 13.5 % (11.7-14.4)
[2020-12-29 05:47] LABS: ALANINE AMINOTRANSFERASE 48 IU/L (0-55); ALBUMIN 1.9 g/dL (3.5-5.0); ALBUMIN/GLOBULIN RATIO 0.6 (0.8-2.0); ALKALINE PHOSPHATASE 107 IU/L (40-150); BLOOD UREA NITROGEN 28 mg/dL (7-26); BUN/CREATININE RATIO 41 (6-25); CALCIUM 7.2 mg/dL (8.4-10.2); CARBON DIOXIDE 26 mmol/L (22-29); CHLORIDE 106 mmol/L (98-107); CREATININE, SERUM 0.68 mg/dL (0.72-1.25); EST GLOMERULAR FILTRATION RATE > 60 ML/MIN (60-); GLUCOSE 162 mg/dL (74-118); SODIUM 139 mmol/L (136-145)
[2020-12-29 07:40] LABS: ABG PH 7.27 (7.35-7.45)
[2020-12-29 07:41] LABS: ABG HCO3 30 mmol/L (22-26); ABG PCO2 66 mmHg (35-45); ABG PO2 137 mmHg (80-105); ABG TCO2 32
[2020-12-29] MEDS: FAMOTIDINE 20 MG/2 ML VIAL IV SCH (08:56)
[2020-12-29] MEDS: DEXAMETHASONE SOD PHOS 10 MG/1 ML VIAL IV SCH (08:56)
[2020-12-29] MEDS: ZINC SULFATE 220 MG CAP PO SCH (08:57)
[2020-12-29] MEDS: ENOXAPARIN INJ 80 MG/0.8 ML SYR SC SCH ×2 (08:57→22:23)
[2020-12-29] MEDS: CHOLECALCIFEROL 400 UNIT TAB PO SCH (08:57)
[2020-12-29] MEDS: ASCORBIC ACID 500 MG TAB PO SCH ×2 (08:57→17:24)
[2020-12-29] MEDS ORDERED: FENTANYL 2,000 MCG/250 ML BAG ONE (13:25)
[2020-12-29] MEDS ORDERED: MIDAZOLAM HCL 5MG/ML 10ML VIAL 100 ML BAG IV ONE (13:25)
[2020-12-29] MEDS ORDERED: PROPOFOL IV EMULSION 10 MG/ML 50 ML VIAL IV ONE (13:25)
[2020-12-29] MEDS ORDERED: ALBUMIN 25% 25GM 100ML 0.25 GM/ML BTL IV SCH (14:00)
[2020-12-29] MEDS: ALBUMIN 25% 25GM 100ML 100 ML IV SCH ×2 (15:22→22:23)
[2020-12-29] MEDS: FUROSEMIDE INJ 10 MG/ML 4 ML VIAL IV SCH ×2 (15:23→22:23)
[2020-12-29 16:13] LABS: ABG HCO3 28 mmol/L (22-26); ABG PCO2 46 mmHg (35-45); ABG PO2 109 mmHg (80-105); ABG TCO2 29
[2020-12-29 18:14] LABS: CLARITY,URINE SL CLOUDY (CLEAR); COLOR,URINE YELLOW (YELLOW); KETONES,URINE NEGATIVE (NEGATIVE); LEUKOCYTE ESTERASE ,URINE NEGATIVE (NEGATIVE); NITRITE,URINE NEGATIVE (NEGATIVE); PROTEIN,URINE DIPSTICK NEGATIVE (NEGATIVE); URINE UROBILINOGEN 0.2 mg/dL (0.2 - 1)
[2020-12-29 18:31] LABS: BACTERIA,URINE RARE /HPF; WBC,URINE (MAN) 0-5 /HPF (0-5)
[2020-12-29] MEDS: INSULIN GLARGINE 100 UNITS/ML VIAL SQ SCH (22:24)
[2020-12-30] VITALS (25 sets, daily range): BP systolic 85–177; BP diastolic 48–91
[2020-12-30] MEDS: VANCOMYCIN 1GM/NS 250 ML 250 ML IV SCH ×3 (00:28→23:30)
[2020-12-30] MEDS: HYDRALAZINE HCL 20 MG/ML VIAL IV PRN ×2 (00:30→13:47)
[2020-12-30] MEDS: FENTANYL 2000MCG/NS 250 250 ML IV SCH ×3 (01:00→17:41)
[2020-12-30] MEDS: MEROPENEM 1GM 100 ML IV SCH ×3 (02:00→18:16)
[2020-12-30] MEDS: MIDAZOLAM HCL 5MG/ML 10ML VIAL 100 ML IV SCH ×2 (04:02→09:03)
[2020-12-30] MEDS: PROPOFOL IV EMULSION 100 ML IV PRN ×3 (04:03→21:58)
[2020-12-30] MEDS: ALBUMIN 25% 25GM 100ML 100 ML IV SCH (05:23)
[2020-12-30] MEDS: INSULIN REGULAR, HUMAN 100 UNIT/1 ML 3ML VIAL SQ SCH ×3 (05:24→17:46)
[2020-12-30 05:50] LABS: BASOPHILS % 0.2 % (0.0-1.0); EOSINOPHILS # (AUTO) 0.1 (0.0-0.4); EOSINOPHILS % 0.4 % (0.0-6.0); HEMATOCRIT 31.4 % (38.2-49.6); HEMOGLOBIN 10.4 g/dL (14.0-18.0); LYMPHOCYTES # (AUTO) 0.5 (1.0-3.2); LYMPHOCYTES % 2.8 % (18.0-39.1); MEAN CORPUSCULAR HEMOGLOBIN 30.9 pg (28-32); MEAN CORPUSCULAR HGB CONC 33.1 g/dL (31-35); MEAN CORPUSCULAR VOLUME 93.2 fL (81-99); MONOCYTES # (AUTO) 0.8 (0.2-0.8); NEUTROPHILS % 89.3 % (38.7-80.0); PLATELET COUNT 301 x10e3/uL (140-360); RED BLOOD COUNT 3.37 x10e6/uL (4.3-5.7); RED CELL DISTRIBUTION WIDTH 13.5 % (11.7-14.4)
[2020-12-30 06:27] LABS: ALANINE AMINOTRANSFERASE 54 IU/L (0-55); ALBUMIN 2.6 g/dL (3.5-5.0); ALBUMIN/GLOBULIN RATIO 0.8 (0.8-2.0); ALKALINE PHOSPHATASE 138 IU/L (40-150); ANION GAP 12.6 mmol/L (8-16); BLOOD UREA NITROGEN 25 mg/dL (7-26); BUN/CREATININE RATIO 35 (6-25); CALCIUM 7.7 mg/dL (8.4-10.2); CARBON DIOXIDE 29 mmol/L (22-29); CHLORIDE 100 mmol/L (98-107); CREATININE, SERUM 0.72 mg/dL (0.72-1.25); EST GLOMERULAR FILTRATION RATE > 60 ML/MIN (60-); GLUCOSE 296 mg/dL (74-118); POTASSIUM 3.6 mmol/L (3.5-5.1); SODIUM 138 mmol/L (136-145)
[2020-12-30] MEDS ORDERED: PROPOFOL IV EMULSION 10MG/ML 100 ML ONE (08:16)
[2020-12-30] MEDS: FAMOTIDINE 20 MG/2 ML VIAL IV SCH (08:42)
[2020-12-30] MEDS: ASCORBIC ACID 500 MG TAB PO SCH ×2 (08:42→16:36)
[2020-12-30] MEDS: ENOXAPARIN INJ 80 MG/0.8 ML SYR SC SCH ×2 (08:42→21:45)
[2020-12-30] MEDS: FUROSEMIDE INJ 10 MG/ML 4 ML VIAL IV SCH (08:42)
[2020-12-30] MEDS: CHOLECALCIFEROL 400 UNIT TAB PO SCH (08:42)
[2020-12-30] MEDS: ZINC SULFATE 220 MG CAP PO SCH (08:42)
[2020-12-30] MEDS: DEXAMETHASONE SOD PHOS 10 MG/1 ML VIAL IV SCH (08:42)
[2020-12-30 08:55] LABS: ABG HCO3 34 mmol/L (22-26); ABG PCO2 56 mmHg (35-45); ABG PH 7.39 (7.35-7.45); ABG PO2 65 mmHg (80-105); ABG TCO2 36
[2020-12-30] MEDS ORDERED: VECURONIUM BROMIDE FOR INJ 20 MG VIAL IV STA (09:41)
[2020-12-30] MEDS ORDERED: FUROSEMIDE INJ 10 MG/ML 4 ML VIAL IV ONE (17:00)
[2020-12-30] MEDS: INSULIN GLARGINE 100 UNITS/ML VIAL SQ SCH (21:15)
[2020-12-31] VITALS (19 sets, daily range): BP systolic 83–165; BP diastolic 47–75
[2020-12-31] MEDS: INSULIN REGULAR, HUMAN 100 UNIT/1 ML 3ML VIAL SQ SCH ×4 (00:30→18:34)
[2020-12-31] MEDS: MIDAZOLAM HCL 5MG/ML 10ML VIAL 100 ML IV SCH ×3 (01:20→17:22)
[2020-12-31] MEDS: PROPOFOL IV EMULSION 100 ML IV PRN ×5 (02:00→22:00)
[2020-12-31] MEDS: MEROPENEM 1GM 100 ML IV SCH ×3 (02:50→17:22)
[2020-12-31] MEDS: FENTANYL 2000MCG/NS 250 250 ML IV SCH (05:00)
[2020-12-31 05:23] LABS: BASOPHILS % 0.2 % (0.0-1.0); EOSINOPHILS % 0.2 % (0.0-6.0); HEMATOCRIT 33.7 % (38.2-49.6); HEMOGLOBIN 10.9 g/dL (14.0-18.0); LYMPHOCYTES % 7.7 % (18.0-39.1); MEAN CORPUSCULAR HEMOGLOBIN 29.9 pg (28-32); MEAN CORPUSCULAR HGB CONC 32.3 g/dL (31-35); MEAN CORPUSCULAR VOLUME 92.6 fL (81-99); MONOCYTES # (AUTO) 0.6 (0.2-0.8); MONOCYTES % 4.7 % (4.4-11.3); NEUTROPHILS # (AUTO) 11.2 (2.1-6.9); NEUTROPHILS % 85.7 % (38.7-80.0); PLATELET COUNT 302 x10e3/uL (140-360); RED BLOOD COUNT 3.64 x10e6/uL (4.3-5.7); RED CELL DISTRIBUTION WIDTH 13.5 % (11.7-14.4)
[2020-12-31 05:38] LABS: ALANINE AMINOTRANSFERASE 49 IU/L (0-55); ALBUMIN 2.7 g/dL (3.5-5.0); ALBUMIN/GLOBULIN RATIO 0.8 (0.8-2.0); ALKALINE PHOSPHATASE 140 IU/L (40-150); ANION GAP 12.6 mmol/L (8-16); BLOOD UREA NITROGEN 25 mg/dL (7-26); BUN/CREATININE RATIO 43 (6-25); CALCIUM 8.3 mg/dL (8.4-10.2); CARBON DIOXIDE 35 mmol/L (22-29); CHLORIDE 99 mmol/L (98-107); CREATININE, SERUM 0.58 mg/dL (0.72-1.25); EST GLOMERULAR FILTRATION RATE > 60 ML/MIN (60-); GLUCOSE 158 mg/dL (74-118); POTASSIUM 3.6 mmol/L (3.5-5.1); SODIUM 143 mmol/L (136-145)
[2020-12-31 09:15] LABS: ABG HCO3 42 mmol/L (22-26); ABG PCO2 55 mmHg (35-45); ABG PH 7.49 (7.35-7.45); ABG PO2 129 mmHg (80-105); ABG TCO2 44
[2020-12-31] MEDS ORDERED: ACETAZOLAMIDE 500 MG CAP PO SCH (10:00)
[2020-12-31] MEDS: ZINC SULFATE 220 MG CAP PO SCH (10:14)
[2020-12-31] MEDS: CHOLECALCIFEROL 400 UNIT TAB PO SCH (10:14)
[2020-12-31] MEDS: FAMOTIDINE 20 MG/2 ML VIAL IV SCH (10:14)
[2020-12-31] MEDS: ASCORBIC ACID 500 MG TAB PO SCH ×2 (10:14→17:22)
[2020-12-31] MEDS: ACETAZOLAMIDE 250 MG TAB PO SCH ×2 (11:04→21:32)
[2020-12-31] MEDS: VANCOMYCIN 1GM/NS 250 ML 250 ML IV SCH (12:56)
[2020-12-31] MEDS ORDERED: NOREPINEPHRINE 8 MG/D5W 250 ML 250 ML IV PRN (13:30)
[2020-12-31] MEDS ORDERED: ALBUMIN 25% 25GM 100ML 0.25 GM/ML BTL IV SCH (14:00)
[2020-12-31] MEDS: ALBUMIN 25% 25GM 100ML 100 ML IV SCH ×2 (15:13→21:32)
[2020-12-31 16:56] LABS: ABG HCO3 35 mmol/L (22-26); ABG PCO2 47 mmHg (35-45); ABG PH 7.48 (7.35-7.45); ABG PO2 60 mmHg (80-105); ABG TCO2 36
[2020-12-31] MEDS: ENOXAPARIN INJ 80 MG/0.8 ML SYR SC SCH (21:05)
[2020-12-31] MEDS: INSULIN GLARGINE 100 UNITS/ML VIAL SQ SCH (21:15)
[2021-01-01] VITALS (25 sets, daily range): BP systolic 90–159; BP diastolic 45–71
[2021-01-01] MEDS: VANCOMYCIN 1GM/NS 250 ML 250 ML IV SCH ×3 (00:22→23:40)
[2021-01-01] MEDS: INSULIN REGULAR, HUMAN 100 UNIT/1 ML 3ML VIAL SQ SCH ×4 (00:32→18:33)
[2021-01-01] MEDS: FENTANYL 2000MCG/NS 250 250 ML IV SCH (02:00)
[2021-01-01] MEDS: MEROPENEM 1GM 100 ML IV SCH ×3 (02:42→17:41)
[2021-01-01] MEDS: PROPOFOL IV EMULSION 100 ML IV PRN ×4 (03:57→20:56)
[2021-01-01 04:59] LABS: BASOPHILS % 0.3 % (0.0-1.0); EOSINOPHILS % 0.3 % (0.0-6.0); HEMATOCRIT 38.3 % (38.2-49.6); HEMOGLOBIN 11.8 g/dL (14.0-18.0); LYMPHOCYTES # (AUTO) 0.8 (1.0-3.2); LYMPHOCYTES % 5.4 % (18.0-39.1); MEAN CORPUSCULAR HEMOGLOBIN 29.1 pg (28-32); MEAN CORPUSCULAR HGB CONC 30.8 g/dL (31-35); MEAN CORPUSCULAR VOLUME 94.6 fL (81-99); MONOCYTES # (AUTO) 0.9 (0.2-0.8); MONOCYTES % 5.7 % (4.4-11.3); NEUTROPHILS % 87.1 % (38.7-80.0); PLATELET COUNT 353 x10e3/uL (140-360); RED BLOOD COUNT 4.05 x10e6/uL (4.3-5.7); RED CELL DISTRIBUTION WIDTH 13.8 % (11.7-14.4)
[2021-01-01 05:18] LABS: ALANINE AMINOTRANSFERASE 70 IU/L (0-55); ALBUMIN 3.2 g/dL (3.5-5.0); ALBUMIN/GLOBULIN RATIO 0.9 (0.8-2.0); ALKALINE PHOSPHATASE 180 IU/L (40-150); ANION GAP 15.1 mmol/L (8-16); BLOOD UREA NITROGEN 21 mg/dL (7-26); BUN/CREATININE RATIO 32 (6-25); CALCIUM 9.1 mg/dL (8.4-10.2); CARBON DIOXIDE 26 mmol/L (22-29); CHLORIDE 108 mmol/L (98-107); CREATININE, SERUM 0.66 mg/dL (0.72-1.25); EST GLOMERULAR FILTRATION RATE > 60 ML/MIN (60-); GLUCOSE 135 mg/dL (74-118); POTASSIUM 4.1 mmol/L (3.5-5.1); SODIUM 145 mmol/L (136-145)
[2021-01-01] MEDS: ALBUMIN 25% 25GM 100ML 100 ML IV SCH (06:00)
[2021-01-01] MEDS ORDERED: ACETAZOLAMIDE 250 MG TAB ONE (08:30)
[2021-01-01] MEDS: CHOLECALCIFEROL 400 UNIT TAB PO SCH (08:52)
[2021-01-01] MEDS: FAMOTIDINE 20 MG/2 ML VIAL IV SCH (08:52)
[2021-01-01] MEDS: ASCORBIC ACID 500 MG TAB PO SCH ×2 (08:52→17:41)
[2021-01-01] MEDS: ENOXAPARIN INJ 80 MG/0.8 ML SYR SC SCH ×2 (08:52→21:00)
[2021-01-01] MEDS: ZINC SULFATE 220 MG CAP PO SCH (08:52)
[2021-01-01] MEDS: ACETAZOLAMIDE 250 MG TAB PO SCH ×2 (08:52→21:27)
[2021-01-01 08:59] LABS: ABG PCO2 52 mmHg (35-45); ABG PH 7.38 (7.35-7.45)
[2021-01-01 09:00] LABS: ABG HCO3 31 mmol/L (22-26); ABG PO2 131 mmHg (80-105); ABG TCO2 33
[2021-01-01] MEDS: INSULIN GLARGINE 100 UNITS/ML VIAL SQ SCH (21:56)
[2021-01-02] VITALS (25 sets, daily range): BP systolic 93–136; BP diastolic 48–60
[2021-01-02] MEDS: INSULIN REGULAR, HUMAN 100 UNIT/1 ML 3ML VIAL SQ SCH ×4 (00:03→18:21)
[2021-01-02] MEDS: MEROPENEM 1GM 100 ML IV SCH ×2 (02:25→09:43)
[2021-01-02 04:58] LABS: BASOPHILS # (AUTO) 0.1 (0.0-0.1); BASOPHILS % 0.3 % (0.0-1.0); EOSINOPHILS % 0.2 % (0.0-6.0); HEMATOCRIT 37.3 % (38.2-49.6); HEMOGLOBIN 11.8 g/dL (14.0-18.0); LYMPHOCYTES # (AUTO) 1.1 (1.0-3.2); LYMPHOCYTES % 6.6 % (18.0-39.1); MEAN CORPUSCULAR HEMOGLOBIN 29.1 pg (28-32); MEAN CORPUSCULAR HGB CONC 31.6 g/dL (31-35); MEAN CORPUSCULAR VOLUME 91.9 fL (81-99); MONOCYTES # (AUTO) 0.7 (0.2-0.8); MONOCYTES % 4.5 % (4.4-11.3); NEUTROPHILS # (AUTO) 14.1 (2.1-6.9); NEUTROPHILS % 87.5 % (38.7-80.0); PLATELET COUNT 405 x10e3/uL (140-360); RED BLOOD COUNT 4.06 x10e6/uL (4.3-5.7); RED CELL DISTRIBUTION WIDTH 14.1 % (11.7-14.4)
[2021-01-02 05:32] LABS: ALANINE AMINOTRANSFERASE 74 IU/L (0-55); ALBUMIN 2.9 g/dL (3.5-5.0); ALBUMIN/GLOBULIN RATIO 0.8 (0.8-2.0); ALKALINE PHOSPHATASE 212 IU/L (40-150); ANION GAP 10.7 mmol/L (8-16); BLOOD UREA NITROGEN 23 mg/dL (7-26); BUN/CREATININE RATIO 32 (6-25); CALCIUM 9.2 mg/dL (8.4-10.2); CARBON DIOXIDE 26 mmol/L (22-29); CHLORIDE 114 mmol/L (98-107); CREATININE, SERUM 0.71 mg/dL (0.72-1.25); EST GLOMERULAR FILTRATION RATE > 60 ML/MIN (60-); GLUCOSE 199 mg/dL (74-118); POTASSIUM 3.7 mmol/L (3.5-5.1); SODIUM 147 mmol/L (136-145)
[2021-01-02] MEDS: PROPOFOL IV EMULSION 100 ML IV PRN ×3 (05:32→22:29)
[2021-01-02] MEDS: MIDAZOLAM HCL 5MG/ML 10ML VIAL 100 ML IV SCH ×2 (09:30→14:47)
[2021-01-02] MEDS: FENTANYL 2000MCG/NS 250 250 ML IV SCH (09:30)
[2021-01-02] MEDS: ASCORBIC ACID 500 MG TAB PO SCH ×2 (09:42→17:19)
[2021-01-02] MEDS: ENOXAPARIN INJ 80 MG/0.8 ML SYR SC SCH ×2 (09:42→21:45)
[2021-01-02] MEDS: ZINC SULFATE 220 MG CAP PO SCH (09:42)
[2021-01-02] MEDS: FAMOTIDINE 20 MG/2 ML VIAL IV SCH (09:42)
[2021-01-02] MEDS: CHOLECALCIFEROL 400 UNIT TAB PO SCH (09:42)
[2021-01-02 09:57] LABS: ABG HCO3 30 mmol/L (22-26); ABG PCO2 41 mmHg (35-45); ABG PH 7.47 (7.35-7.45); ABG PO2 90 mmHg (80-105)
[2021-01-02 09:58] LABS: ABG TCO2 31
[2021-01-02] MEDS: INSULIN GLARGINE 100 UNITS/ML VIAL SQ SCH (21:03)
[2021-01-03] VITALS (24 sets, daily range): BP systolic 91–127; BP diastolic 48–68
[2021-01-03] MEDS: INSULIN REGULAR, HUMAN 100 UNIT/1 ML 3ML VIAL SQ SCH ×4 (00:19→18:04)
[2021-01-03] MEDS: ACETAMINOPHEN 325 MG TAB PO PRN ×4 (04:30→23:12)
[2021-01-03 06:00] LABS: BASOPHILS # (AUTO) 0.1 (0.0-0.1); BASOPHILS % 0.3 % (0.0-1.0); EOSINOPHILS # (AUTO) 0.2 (0.0-0.4); EOSINOPHILS % 0.8 % (0.0-6.0); HEMATOCRIT 37.4 % (38.2-49.6); HEMOGLOBIN 11.9 g/dL (14.0-18.0); LYMPHOCYTES # (AUTO) 1.2 (1.0-3.2); LYMPHOCYTES % 5.8 % (18.0-39.1); MEAN CORPUSCULAR HEMOGLOBIN 28.8 pg (28-32); MEAN CORPUSCULAR HGB CONC 31.8 g/dL (31-35); MEAN CORPUSCULAR VOLUME 90.6 fL (81-99); MONOCYTES # (AUTO) 0.9 (0.2-0.8); MONOCYTES % 4.2 % (4.4-11.3); NEUTROPHILS # (AUTO) 18.5 (2.1-6.9); NEUTROPHILS % 88.2 % (38.7-80.0); PLATELET COUNT 449 x10e3/uL (140-360); RED BLOOD COUNT 4.13 x10e6/uL (4.3-5.7); RED CELL DISTRIBUTION WIDTH 14.4 % (11.7-14.4)
[2021-01-03 06:22] LABS: ALANINE AMINOTRANSFERASE 54 IU/L (0-55); ALBUMIN 2.6 g/dL (3.5-5.0); ALBUMIN/GLOBULIN RATIO 0.7 (0.8-2.0); ALKALINE PHOSPHATASE 176 IU/L (40-150); ANION GAP 14.8 mmol/L (8-16); BLOOD UREA NITROGEN 36 mg/dL (7-26); BUN/CREATININE RATIO 51 (6-25); CALCIUM 9.6 mg/dL (8.4-10.2); CARBON DIOXIDE 27 mmol/L (22-29); CHLORIDE 110 mmol/L (98-107); CREATININE, SERUM 0.71 mg/dL (0.72-1.25); EST GLOMERULAR FILTRATION RATE > 60 ML/MIN (60-); GLUCOSE 205 mg/dL (74-118); POTASSIUM 3.8 mmol/L (3.5-5.1); SODIUM 148 mmol/L (136-145)
[2021-01-03 08:57] LABS: ABG HCO3 31 mmol/L (22-26); ABG PCO2 42 mmHg (35-45); ABG PH 7.47 (7.35-7.45); ABG PO2 79 mmHg (80-105); ABG TCO2 32
[2021-01-03] MEDS ORDERED: SODIUM CHLORIDE 0.45% 500 ML IV ONE (09:00)
[2021-01-03] MEDS: FENTANYL 2000MCG/NS 250 250 ML IV SCH (09:30)
[2021-01-03] MEDS: FAMOTIDINE 20 MG/2 ML VIAL IV SCH (09:52)
[2021-01-03] MEDS: ASCORBIC ACID 500 MG TAB PO SCH ×2 (09:52→17:06)
[2021-01-03] MEDS: CHOLECALCIFEROL 400 UNIT TAB PO SCH (09:52)
[2021-01-03] MEDS: ENOXAPARIN INJ 80 MG/0.8 ML SYR SC SCH ×2 (09:52→22:00)
[2021-01-03] MEDS: ZINC SULFATE 220 MG CAP PO SCH (09:52)
[2021-01-03] MEDS: PROPOFOL IV EMULSION 100 ML IV PRN ×2 (10:02→20:00)
[2021-01-03] MEDS ORDERED: MIDAZOLAM HCL 5MG/ML 10ML VIAL 100 ML BAG IV ONE (10:25)
[2021-01-03] MEDS ORDERED: PROPOFOL IV EMULSION 10MG/ML 100ML BTL ONE (10:25)
[2021-01-03] MEDS ORDERED: WATER STERILE 10 ML VIAL ONE (13:10)
[2021-01-03] MEDS ORDERED: VECURONIUM BROMIDE FOR INJ 20 MG VIAL ONE (13:10)
[2021-01-03] MEDS ORDERED: SODIUM CHLORIDE 0.45% 500 ML IV STA (16:37)
[2021-01-03] MEDS: INSULIN GLARGINE 100 UNITS/ML VIAL SQ SCH (22:00)
[2021-01-04] VITALS (20 sets, daily range): BP systolic 96–134; BP diastolic 45–67
[2021-01-04] MEDS: INSULIN REGULAR, HUMAN 100 UNIT/1 ML 3ML VIAL SQ SCH ×4 (00:30→17:08)
[2021-01-04 06:11] LABS: BASOPHILS # (AUTO) 0.1 (0.0-0.1); BASOPHILS % 0.3 % (0.0-1.0); EOSINOPHILS # (AUTO) 0.2 (0.0-0.4); EOSINOPHILS % 1.2 % (0.0-6.0); HEMATOCRIT 34.3 % (38.2-49.6); LYMPHOCYTES # (AUTO) 1.3 (1.0-3.2); LYMPHOCYTES % 7.3 % (18.0-39.1); MEAN CORPUSCULAR HEMOGLOBIN 29.2 pg (28-32); MEAN CORPUSCULAR HGB CONC 32.1 g/dL (31-35); MONOCYTES # (AUTO) 0.9 (0.2-0.8); MONOCYTES % 4.8 % (4.4-11.3); NEUTROPHILS # (AUTO) 15.1 (2.1-6.9); PLATELET COUNT 404 x10e3/uL (140-360); RED BLOOD COUNT 3.77 x10e6/uL (4.3-5.7); RED CELL DISTRIBUTION WIDTH 14.3 % (11.7-14.4)
[2021-01-04] MEDS: PROPOFOL IV EMULSION 100 ML IV PRN ×3 (06:14→20:50)
[2021-01-04 06:39] LABS: ALANINE AMINOTRANSFERASE 39 IU/L (0-55); ALBUMIN 2.1 g/dL (3.5-5.0); ALBUMIN/GLOBULIN RATIO 0.5 (0.8-2.0); ALKALINE PHOSPHATASE 136 IU/L (40-150); BLOOD UREA NITROGEN 35 mg/dL (7-26); BUN/CREATININE RATIO 57 (6-25); CALCIUM 9.1 mg/dL (8.4-10.2); CARBON DIOXIDE 28 mmol/L (22-29); CHLORIDE 107 mmol/L (98-107); CREATININE, SERUM 0.61 mg/dL (0.72-1.25); EST GLOMERULAR FILTRATION RATE > 60 ML/MIN (60-); GLUCOSE 170 mg/dL (74-118); SODIUM 143 mmol/L (136-145)
[2021-01-04 06:53] LABS: % IRON SATURATION 16 % (15-50); IRON 21 ug/dL (65-175); TOTAL IRON BINDING CAPACITY 130 ug/dL (261-478); TRANSFERRIN 93 mg/dL (174-364)
[2021-01-04] MEDS: ZINC SULFATE 220 MG CAP PO SCH (08:42)
[2021-01-04] MEDS: FAMOTIDINE 20 MG/2 ML VIAL IV SCH (08:42)
[2021-01-04] MEDS: ASCORBIC ACID 500 MG TAB PO SCH ×2 (08:42→17:08)
[2021-01-04] MEDS: CHOLECALCIFEROL 400 UNIT TAB PO SCH (08:42)
[2021-01-04] MEDS: ENOXAPARIN INJ 80 MG/0.8 ML SYR SC SCH ×2 (08:42→21:00)
[2021-01-04 08:56] LABS: ABG PCO2 49 mmHg (35-45); ABG PH 7.42 (7.35-7.45); ABG PO2 176 mmHg (80-105)
[2021-01-04 08:57] LABS: ABG HCO3 32 mmol/L (22-26); ABG TCO2 33
[2021-01-04] MEDS: MIDAZOLAM HCL 5MG/ML 10ML VIAL 100 ML IV SCH (09:30)
[2021-01-04] MEDS: FENTANYL 2000MCG/NS 250 250 ML IV SCH (09:30)
[2021-01-04] MEDS: ACETAMINOPHEN 325 MG TAB PO PRN (18:40)
[2021-01-04] MEDS: INSULIN GLARGINE 100 UNITS/ML VIAL SQ SCH (21:00)
[2021-01-04] MEDS ORDERED: CYANOCOBALAMIN INJ 1,000 MCG/ML VIAL IM ONE (23:15)
[2021-01-04] MEDS ORDERED: HEPARIN SOD/SOD CHLORIDE 1,000 ML ONE (23:33)
[2021-01-05] VITALS (23 sets, daily range): BP systolic 91–161; BP diastolic 50–87
[2021-01-05] MEDS: INSULIN REGULAR, HUMAN 100 UNIT/1 ML 3ML VIAL SQ SCH ×4 (00:30→18:19)
[2021-01-05] MEDS: ACETAMINOPHEN 325 MG TAB PO PRN ×2 (01:00→23:48)
[2021-01-05 05:34] LABS: BASOPHILS # (AUTO) 0.1 (0.0-0.1); BASOPHILS % 0.3 % (0.0-1.0); EOSINOPHILS # (AUTO) 0.3 (0.0-0.4); EOSINOPHILS % 1.3 % (0.0-6.0); HEMATOCRIT 34.6 % (38.2-49.6); HEMOGLOBIN 11.2 g/dL (14.0-18.0); LYMPHOCYTES # (AUTO) 0.9 (1.0-3.2); LYMPHOCYTES % 4.5 % (18.0-39.1); MEAN CORPUSCULAR HEMOGLOBIN 29.2 pg (28-32); MEAN CORPUSCULAR HGB CONC 32.4 g/dL (31-35); MEAN CORPUSCULAR VOLUME 90.1 fL (81-99); MONOCYTES # (AUTO) 0.9 (0.2-0.8); MONOCYTES % 4.4 % (4.4-11.3); NEUTROPHILS # (AUTO) 18.2 (2.1-6.9); NEUTROPHILS % 88.7 % (38.7-80.0); PLATELET COUNT 427 x10e3/uL (140-360); RED BLOOD COUNT 3.84 x10e6/uL (4.3-5.7); RED CELL DISTRIBUTION WIDTH 14.2 % (11.7-14.4)
[2021-01-05 05:50] LABS: INR 1.03; PROTHROMBIN TIME 14.1 seconds (11.9-14.5)
[2021-01-05 05:51] LABS: PARTIAL THROMBOPLASTIN TIME 43.9 seconds (23.8-35.5)
[2021-01-05 06:12] LABS: ALANINE AMINOTRANSFERASE 38 IU/L (0-55); ALBUMIN 2.1 g/dL (3.5-5.0); ALBUMIN/GLOBULIN RATIO 0.5 (0.8-2.0); ALKALINE PHOSPHATASE 145 IU/L (40-150); ANION GAP 12.9 mmol/L (8-16); BLOOD UREA NITROGEN 32 mg/dL (7-26); BUN/CREATININE RATIO 56 (6-25); CALCIUM 9.2 mg/dL (8.4-10.2); CARBON DIOXIDE 30 mmol/L (22-29); CHLORIDE 104 mmol/L (98-107); CREATININE, SERUM 0.57 mg/dL (0.72-1.25); EST GLOMERULAR FILTRATION RATE > 60 ML/MIN (60-); GLUCOSE 93 mg/dL (74-118); POTASSIUM 3.9 mmol/L (3.5-5.1); SODIUM 143 mmol/L (136-145)
[2021-01-05 08:36] LABS: ABG HCO3 30 mmol/L (22-26); ABG PCO2 44 mmHg (35-45); ABG PH 7.44 (7.35-7.45); ABG PO2 69 mmHg (80-105)
[2021-01-05 08:37] LABS: ABG TCO2 31
[2021-01-05] MEDS: CHOLECALCIFEROL 400 UNIT TAB PO SCH (09:11)
[2021-01-05] MEDS: CYANOCOBALAMIN INJ 1,000 MCG/ML VIAL IM SCH (09:11)
[2021-01-05] MEDS: ENOXAPARIN INJ 80 MG/0.8 ML SYR SC SCH ×2 (09:11→21:00)
[2021-01-05] MEDS: IRON SUCROSE 100 MG in SODIUM CHLORIDE 0.9% 100 ML 100 ML IV SCH (09:11)
[2021-01-05] MEDS: ASCORBIC ACID 500 MG TAB PO SCH ×2 (09:11→17:09)
[2021-01-05] MEDS: FAMOTIDINE 20 MG/2 ML VIAL IV SCH (09:11)
[2021-01-05] MEDS: ZINC SULFATE 220 MG CAP PO SCH (09:11)
[2021-01-05 12:08] LABS: CLARITY,URINE CLEAR (CLEAR); COLOR,URINE YELLOW (YELLOW); KETONES,URINE TRACE (NEGATIVE); LEUKOCYTE ESTERASE ,URINE NEGATIVE (NEGATIVE); NITRITE,URINE NEGATIVE (NEGATIVE); PROTEIN,URINE DIPSTICK 1+ (NEGATIVE); URINE UROBILINOGEN 0.2 mg/dL (0.2 - 1)
[2021-01-05 12:32] LABS: BACTERIA,URINE RARE /HPF; EPITHELIAL CELLS,URINE FEW /LPF
[2021-01-05] MEDS: MEROPENEM 1GRAM 1 GM in SODIUM CHLORIDE 0.9% 100 ML 100 ML IV SCH ×2 (12:34→20:00)
[2021-01-05] MEDS: VANCOMYCIN 1GM/NS 250 ML 250 ML IV SCH (13:33)
[2021-01-05] MEDS: PROPOFOL IV EMULSION 100 ML IV PRN (19:30)
[2021-01-05] MEDS: INSULIN GLARGINE 100 UNITS/ML VIAL SQ SCH (21:00)
[2021-01-06] VITALS (26 sets, daily range): BP systolic 98–154; BP diastolic 53–71
[2021-01-06] MEDS: VANCOMYCIN 1GM/NS 250 ML 250 ML IV SCH ×2 (02:07→13:48)
[2021-01-06] MEDS: MEROPENEM 1GRAM 1 GM in SODIUM CHLORIDE 0.9% 100 ML 100 ML IV SCH ×3 (05:03→21:31)
[2021-01-06] MEDS: ACETAMINOPHEN 325 MG TAB PO PRN (05:56)
[2021-01-06] MEDS: INSULIN REGULAR, HUMAN 100 UNIT/1 ML 3ML VIAL SQ SCH ×4 (06:00→17:16)
[2021-01-06 06:13] LABS: HEMATOCRIT 33.8 % (38.2-49.6); HEMOGLOBIN 10.8 g/dL (14.0-18.0); MEAN CORPUSCULAR VOLUME 90.9 fL (81-99); PLATELET COUNT 406 x10e3/uL (140-360); RED BLOOD COUNT 3.72 x10e6/uL (4.3-5.7); RED CELL DISTRIBUTION WIDTH 13.9 % (11.7-14.4)
[2021-01-06] MEDS: PROPOFOL IV EMULSION 100 ML IV PRN ×3 (06:13→15:18)
[2021-01-06 06:41] LABS: ALANINE AMINOTRANSFERASE 33 IU/L (0-55); ALBUMIN 1.8 g/dL (3.5-5.0); ALBUMIN/GLOBULIN RATIO 0.4 (0.8-2.0); ALKALINE PHOSPHATASE 154 IU/L (40-150); ANION GAP 9.5 mmol/L (8-16); BLOOD UREA NITROGEN 26 mg/dL (7-26); BUN/CREATININE RATIO 47 (6-25); CALCIUM 8.7 mg/dL (8.4-10.2); CARBON DIOXIDE 32 mmol/L (22-29); CHLORIDE 103 mmol/L (98-107); CREATININE, SERUM 0.55 mg/dL (0.72-1.25); EST GLOMERULAR FILTRATION RATE > 60 ML/MIN (60-); GLUCOSE 79 mg/dL (74-118); POTASSIUM 3.5 mmol/L (3.5-5.1); SODIUM 141 mmol/L (136-145)
[2021-01-06 08:11] LABS: LYMPHOCYTES % (MANUAL) 8 % (19-48); MONOCYTES % (MANUAL) 6 % (3.4-9.0); NEUTROPHILS % (MANUAL) 86 % (40-74)
[2021-01-06 08:12] LABS: ANISOCYTOSIS SLIGHT; HYPOCHROMASIA SLIGHT; POLYCHROMASIA FEW; RBC MORPHOLOGY COMMENT ABNORMAL
[2021-01-06] MEDS: IRON SUCROSE 100 MG in SODIUM CHLORIDE 0.9% 100 ML 100 ML IV SCH (08:27)
[2021-01-06] MEDS: CYANOCOBALAMIN INJ 1,000 MCG/ML VIAL IM SCH (08:27)
[2021-01-06] MEDS: ENOXAPARIN INJ 80 MG/0.8 ML SYR SC SCH ×2 (08:27→21:31)
[2021-01-06] MEDS: ZINC SULFATE 220 MG CAP PO SCH (08:27)
[2021-01-06] MEDS: FAMOTIDINE 20 MG/2 ML VIAL IV SCH (08:27)
[2021-01-06] MEDS: CHOLECALCIFEROL 400 UNIT TAB PO SCH (08:27)
[2021-01-06] MEDS: ASCORBIC ACID 500 MG TAB PO SCH ×2 (08:27→17:16)
[2021-01-06] MEDS ORDERED: NYSTATIN 15 GM POWDER UD BTL TOP PRN (08:45)
[2021-01-06 09:30] LABS: ABG HCO3 33 mmol/L (22-26); ABG PCO2 45 mmHg (35-45); ABG PH 7.48 (7.35-7.45); ABG PO2 100 mmHg (80-105); ABG TCO2 34
[2021-01-06] MEDS: NYSTATIN 15 GM POWDER UD BTL TOP SCH ×2 (12:16→17:16)
[2021-01-06] MEDS: ACETAMINOPHEN 1000 MG/100 ML IV PRN ×2 (15:21→23:54)
[2021-01-06] MEDS: INSULIN GLARGINE 100 UNITS/ML VIAL SQ SCH (21:36)
[2021-01-07] VITALS (23 sets, daily range): BP systolic 32–155; BP diastolic 46–70
[2021-01-07] MEDS: INSULIN REGULAR, HUMAN 100 UNIT/1 ML 3ML VIAL SQ SCH ×4 (00:17→17:02)
[2021-01-07] MEDS: PROPOFOL IV EMULSION 100 ML IV PRN ×4 (00:42→20:59)
[2021-01-07] MEDS: VANCOMYCIN 1GM/NS 250 ML 250 ML IV SCH ×2 (01:21→11:54)
[2021-01-07] MEDS: MEROPENEM 1GRAM 1 GM in SODIUM CHLORIDE 0.9% 100 ML 100 ML IV SCH (04:19)
[2021-01-07 05:58] LABS: BASOPHILS % 0.2 % (0.0-1.0); EOSINOPHILS # (AUTO) 0.4 (0.0-0.4); EOSINOPHILS % 2.1 % (0.0-6.0); HEMATOCRIT 30.1 % (38.2-49.6); HEMOGLOBIN 9.7 g/dL (14.0-18.0); LYMPHOCYTES % 5.6 % (18.0-39.1); MEAN CORPUSCULAR HGB CONC 32.2 g/dL (31-35); MEAN CORPUSCULAR VOLUME 89.9 fL (81-99); MONOCYTES # (AUTO) 0.4 (0.2-0.8); MONOCYTES % 2.6 % (4.4-11.3); NEUTROPHILS # (AUTO) 15.1 (2.1-6.9); PLATELET COUNT 361 x10e3/uL (140-360); RED BLOOD COUNT 3.35 x10e6/uL (4.3-5.7); RED CELL DISTRIBUTION WIDTH 13.8 % (11.7-14.4)
[2021-01-07 06:15] LABS: INR 1.04; PROTHROMBIN TIME 14.3 seconds (11.9-14.5)
[2021-01-07 06:16] LABS: PARTIAL THROMBOPLASTIN TIME 43.8 seconds (23.8-35.5)
[2021-01-07 06:41] LABS: ALANINE AMINOTRANSFERASE 29 IU/L (0-55); ALBUMIN 1.6 g/dL (3.5-5.0); ALBUMIN/GLOBULIN RATIO 0.4 (0.8-2.0); ALKALINE PHOSPHATASE 152 IU/L (40-150); ANION GAP 9.7 mmol/L (8-16); BLOOD UREA NITROGEN 21 mg/dL (7-26); BUN/CREATININE RATIO 40 (6-25); CALCIUM 8.7 mg/dL (8.4-10.2); CARBON DIOXIDE 32 mmol/L (22-29); CHLORIDE 102 mmol/L (98-107); CREATININE, SERUM 0.53 mg/dL (0.72-1.25); EST GLOMERULAR FILTRATION RATE > 60 ML/MIN (60-); GLUCOSE 105 mg/dL (74-118); POTASSIUM 3.7 mmol/L (3.5-5.1); SODIUM 140 mmol/L (136-145)
[2021-01-07] MEDS: FAMOTIDINE 20 MG/2 ML VIAL IV SCH (08:34)
[2021-01-07] MEDS: CYANOCOBALAMIN INJ 1,000 MCG/ML VIAL IM SCH (08:34)
[2021-01-07] MEDS: ACETAMINOPHEN 325 MG TAB PO PRN (08:35)
[2021-01-07] MEDS: CHOLECALCIFEROL 400 UNIT TAB PO SCH (08:35)
[2021-01-07] MEDS: ZINC SULFATE 220 MG CAP PO SCH (08:35)
[2021-01-07] MEDS: NYSTATIN 15 GM POWDER UD BTL TOP SCH ×2 (08:35→17:02)
[2021-01-07] MEDS: ENOXAPARIN INJ 80 MG/0.8 ML SYR SC SCH (08:35)
[2021-01-07] MEDS: IRON SUCROSE 100 MG in SODIUM CHLORIDE 0.9% 100 ML 100 ML IV SCH (08:35)
[2021-01-07] MEDS: ASCORBIC ACID 500 MG TAB PO SCH ×2 (08:35→17:02)
[2021-01-07 09:32] LABS: ABG HCO3 33 mmol/L (22-26); ABG PCO2 51 mmHg (35-45); ABG PH 7.42 (7.35-7.45); ABG PO2 78 mmHg (80-105); ABG TCO2 34
[2021-01-07] MEDS: SODIUM CHLORIDE 0.9% IV SCH ×2 (11:53→20:59)
[2021-01-07] MEDS: MEROPENEM IV SCH ×2 (11:53→20:59)
[2021-01-07] MEDS: INSULIN GLARGINE 100 UNITS/ML VIAL SQ SCH (21:04)
[2021-01-08] VITALS (25 sets, daily range): BP systolic 92–153; BP diastolic 51–67
[2021-01-08] MEDS: VANCOMYCIN 1GM/NS 250 ML 250 ML IV SCH ×2 (01:22→14:20)
[2021-01-08] MEDS: SODIUM CHLORIDE 0.9% IV SCH ×4 (01:30→22:00)
[2021-01-08] MEDS: MEROPENEM IV SCH ×4 (01:30→22:00)
[2021-01-08 04:39] LABS: BASOPHILS % 0.3 % (0.0-1.0); EOSINOPHILS # (AUTO) 0.3 (0.0-0.4); EOSINOPHILS % 2.2 % (0.0-6.0); HEMATOCRIT 29.6 % (38.2-49.6); HEMOGLOBIN 9.5 g/dL (14.0-18.0); LYMPHOCYTES # (AUTO) 1.1 (1.0-3.2); LYMPHOCYTES % 7.6 % (18.0-39.1); MEAN CORPUSCULAR HGB CONC 32.1 g/dL (31-35); MEAN CORPUSCULAR VOLUME 90.2 fL (81-99); MONOCYTES # (AUTO) 0.5 (0.2-0.8); MONOCYTES % 3.7 % (4.4-11.3); NEUTROPHILS # (AUTO) 12.2 (2.1-6.9); NEUTROPHILS % 85.7 % (38.7-80.0); PLATELET COUNT 392 x10e3/uL (140-360); RED BLOOD COUNT 3.28 x10e6/uL (4.3-5.7); RED CELL DISTRIBUTION WIDTH 13.8 % (11.7-14.4)
[2021-01-08 05:02] LABS: ALANINE AMINOTRANSFERASE 20 IU/L (0-55); ALBUMIN 1.5 g/dL (3.5-5.0); ALBUMIN/GLOBULIN RATIO 0.4 (0.8-2.0); ALKALINE PHOSPHATASE 123 IU/L (40-150); ANION GAP 9.6 mmol/L (8-16); BLOOD UREA NITROGEN 19 mg/dL (7-26); BUN/CREATININE RATIO 36 (6-25); CALCIUM 8.5 mg/dL (8.4-10.2); CARBON DIOXIDE 33 mmol/L (22-29); CHLORIDE 104 mmol/L (98-107); CREATININE, SERUM 0.53 mg/dL (0.72-1.25); EST GLOMERULAR FILTRATION RATE > 60 ML/MIN (60-); GLUCOSE 114 mg/dL (74-118); POTASSIUM 3.6 mmol/L (3.5-5.1); SODIUM 143 mmol/L (136-145)
[2021-01-08] MEDS: INSULIN REGULAR, HUMAN 100 UNIT/1 ML 3ML VIAL SQ SCH ×4 (05:29→18:00)
[2021-01-08] MEDS: ZINC SULFATE 220 MG CAP PO SCH (09:00)
[2021-01-08] MEDS: CHOLECALCIFEROL 400 UNIT TAB PO SCH (09:00)
[2021-01-08] MEDS: ASCORBIC ACID 500 MG TAB PO SCH ×2 (09:00→17:00)
[2021-01-08] MEDS: PROPOFOL IV EMULSION 10MG/ML 100 ML IV PRN ×2 (09:11→16:49)
[2021-01-08 09:21] LABS: ABG HCO3 35 mmol/L (22-26); ABG PCO2 52 mmHg (35-45); ABG PH 7.43 (7.35-7.45); ABG PO2 89 mmHg (80-105); ABG TCO2 36
[2021-01-08] MEDS: NYSTATIN 15 GM POWDER UD BTL TOP SCH ×2 (09:52→17:12)
[2021-01-08] MEDS: CYANOCOBALAMIN INJ 1,000 MCG/ML VIAL IM SCH (09:52)
[2021-01-08] MEDS: FAMOTIDINE 20 MG/2 ML VIAL IV SCH (09:52)
[2021-01-08] MEDS: BALSAM PERU/CASTOR OIL 60 GM OINT...G. TP SCH (09:53)
[2021-01-08] MEDS ORDERED: BUPIVACAINE 0.5%/EPI 30 ML SDV INJ ONE (11:28)
[2021-01-08] MEDS: IRON SUCROSE 100 MG in SODIUM CHLORIDE 0.9% 100 ML 100 ML IV SCH (11:30)
[2021-01-08] MEDS ORDERED: SEVOFLURANE INHAL SOLN 250 ML PEN BTL ONE (13:02)
[2021-01-08] MEDS: INSULIN GLARGINE 100 UNITS/ML VIAL SQ SCH (21:00)
[2021-01-09] VITALS (17 sets, daily range): BP systolic 98–174; BP diastolic 53–83
[2021-01-09] MEDS: VANCOMYCIN 1GM/NS 250 ML 250 ML IV SCH ×2 (01:00→14:37)
[2021-01-09] MEDS: PROPOFOL IV EMULSION 10MG/ML 100 ML IV PRN ×2 (04:00→19:10)
[2021-01-09] MEDS: SODIUM CHLORIDE 0.9% IV SCH ×3 (04:00→20:00)
[2021-01-09] MEDS: MEROPENEM IV SCH ×3 (04:00→20:00)
[2021-01-09 05:20] LABS: BASOPHILS # (AUTO) 0.1 (0.0-0.1); BASOPHILS % 0.4 % (0.0-1.0); EOSINOPHILS # (AUTO) 0.5 (0.0-0.4); EOSINOPHILS % 3.4 % (0.0-6.0); HEMATOCRIT 29.6 % (38.2-49.6); HEMOGLOBIN 9.3 g/dL (14.0-18.0); LYMPHOCYTES # (AUTO) 1.1 (1.0-3.2); LYMPHOCYTES % 8.3 % (18.0-39.1); MEAN CORPUSCULAR HEMOGLOBIN 29.8 pg (28-32); MEAN CORPUSCULAR HGB CONC 31.4 g/dL (31-35); MEAN CORPUSCULAR VOLUME 94.9 fL (81-99); MONOCYTES # (AUTO) 0.7 (0.2-0.8); MONOCYTES % 4.9 % (4.4-11.3); NEUTROPHILS % 82.5 % (38.7-80.0); PLATELET COUNT 433 x10e3/uL (140-360); RED BLOOD COUNT 3.12 x10e6/uL (4.3-5.7); RED CELL DISTRIBUTION WIDTH 13.6 % (11.7-14.4)
[2021-01-09 05:45] LABS: ALANINE AMINOTRANSFERASE 19 IU/L (0-55); ALBUMIN 1.9 g/dL (3.5-5.0); ALBUMIN/GLOBULIN RATIO 0.4 (0.8-2.0); ALKALINE PHOSPHATASE 100 IU/L (40-150); ANION GAP 12.4 mmol/L (8-16); BLOOD UREA NITROGEN 13 mg/dL (7-26); BUN/CREATININE RATIO 38 (6-25); CARBON DIOXIDE 33 mmol/L (22-29); CHLORIDE 103 mmol/L (98-107); CREATININE, SERUM 0.34 mg/dL (0.72-1.25); EST GLOMERULAR FILTRATION RATE > 60 ML/MIN (60-); POTASSIUM 3.4 mmol/L (3.5-5.1); SODIUM 145 mmol/L (136-145)
[2021-01-09 05:50] LABS: GLUCOSE 59 mg/dL (74-118)
[2021-01-09] MEDS: INSULIN REGULAR, HUMAN 100 UNIT/1 ML 3ML VIAL SQ SCH ×4 (06:00→17:41)
[2021-01-09 08:44] LABS: ABG PCO2 55 mmHg (35-45); ABG PH 7.42 (7.35-7.45); ABG PO2 101 mmHg (80-105)
[2021-01-09 08:45] LABS: ABG HCO3 36 mmol/L (22-26); ABG TCO2 37
[2021-01-09] MEDS: NYSTATIN 15 GM POWDER UD BTL TOP SCH ×2 (09:00→17:00)
[2021-01-09] MEDS: BALSAM PERU/CASTOR OIL 60 GM OINT...G. TP SCH (09:00)
[2021-01-09] MEDS: FAMOTIDINE 20 MG/2 ML VIAL IV SCH (09:24)
[2021-01-09] MEDS: CYANOCOBALAMIN INJ 1,000 MCG/ML VIAL IM SCH (09:24)
[2021-01-09] MEDS: IRON SUCROSE 100 MG in SODIUM CHLORIDE 0.9% 100 ML 100 ML IV SCH (09:24)
[2021-01-09] MEDS ORDERED: POTASSIUM CHLORIDE 10MEQ/100ML 200 ML IV ONE (15:00)
[2021-01-09] MEDS: ASCORBIC ACID 500 MG TAB PO SCH ×2 (15:28→17:00)
[2021-01-09] MEDS: ZINC SULFATE 220 MG CAP PO SCH (15:28)
[2021-01-09] MEDS: CHOLECALCIFEROL 400 UNIT TAB PO SCH (15:28)
[2021-01-09] MEDS: INSULIN GLARGINE 100 UNITS/ML VIAL SQ SCH (21:00)
[2021-01-09] MEDS: ENOXAPARIN SOD INJ 60 MG/0.6 ML SYR SC SCH (21:30)
[2021-01-10] VITALS (16 sets, daily range): BP systolic 98–151; BP diastolic 54–75
[2021-01-10] MEDS: PROPOFOL IV EMULSION 10MG/ML 100 ML IV PRN ×2 (01:00→11:47)
[2021-01-10] MEDS: VANCOMYCIN 1GM/NS 250 ML 250 ML IV SCH ×2 (01:00→14:00)
[2021-01-10] MEDS: SODIUM CHLORIDE 0.9% IV SCH ×3 (04:00→20:00)
[2021-01-10] MEDS: MEROPENEM IV SCH ×3 (04:00→20:00)
[2021-01-10] MEDS: INSULIN REGULAR, HUMAN 100 UNIT/1 ML 3ML VIAL SQ SCH ×4 (05:07→17:37)
[2021-01-10 05:46] LABS: BASOPHILS # (AUTO) 0.1 (0.0-0.1); BASOPHILS % 0.4 % (0.0-1.0); EOSINOPHILS # (AUTO) 0.4 (0.0-0.4); EOSINOPHILS % 2.8 % (0.0-6.0); HEMATOCRIT 30.3 % (38.2-49.6); HEMOGLOBIN 9.6 g/dL (14.0-18.0); LYMPHOCYTES # (AUTO) 1.1 (1.0-3.2); LYMPHOCYTES % 8.2 % (18.0-39.1); MEAN CORPUSCULAR HEMOGLOBIN 30.2 pg (28-32); MEAN CORPUSCULAR HGB CONC 31.7 g/dL (31-35); MEAN CORPUSCULAR VOLUME 95.3 fL (81-99); MONOCYTES # (AUTO) 0.7 (0.2-0.8); MONOCYTES % 4.9 % (4.4-11.3); NEUTROPHILS # (AUTO) 11.5 (2.1-6.9); NEUTROPHILS % 83.3 % (38.7-80.0); PLATELET COUNT 393 x10e3/uL (140-360); RED BLOOD COUNT 3.18 x10e6/uL (4.3-5.7); RED CELL DISTRIBUTION WIDTH 13.5 % (11.7-14.4)
[2021-01-10 06:06] LABS: ALANINE AMINOTRANSFERASE 21 IU/L (0-55); ALBUMIN 1.8 g/dL (3.5-5.0); ALBUMIN/GLOBULIN RATIO 0.4 (0.8-2.0); ALKALINE PHOSPHATASE 90 IU/L (40-150); ANION GAP 14.6 mmol/L (8-16); BLOOD UREA NITROGEN 15 mg/dL (7-26); BUN/CREATININE RATIO 29 (6-25); CALCIUM 8.1 mg/dL (8.4-10.2); CARBON DIOXIDE 29 mmol/L (22-29); CHLORIDE 100 mmol/L (98-107); CREATININE, SERUM 0.51 mg/dL (0.72-1.25); EST GLOMERULAR FILTRATION RATE > 60 ML/MIN (60-); GLUCOSE 112 mg/dL (74-118); POTASSIUM 3.6 mmol/L (3.5-5.1); SODIUM 140 mmol/L (136-145)
[2021-01-10 08:42] LABS: ABG HCO3 34 mmol/L (22-26); ABG PCO2 49 mmHg (35-45); ABG PH 7.45 (7.35-7.45); ABG PO2 97 mmHg (80-105); ABG TCO2 36
[2021-01-10] MEDS: FAMOTIDINE 20 MG/2 ML VIAL IV SCH (09:40)
[2021-01-10] MEDS: ASCORBIC ACID 500 MG TAB PO SCH ×2 (09:40→17:35)
[2021-01-10] MEDS: ZINC SULFATE 220 MG CAP PO SCH (09:41)
[2021-01-10] MEDS: CHOLECALCIFEROL 400 UNIT TAB PO SCH (09:41)
[2021-01-10] MEDS: ENOXAPARIN SOD INJ 60 MG/0.6 ML SYR SC SCH ×2 (09:46→21:00)
[2021-01-10] MEDS: NYSTATIN 15 GM POWDER UD BTL TOP SCH ×2 (09:48→17:36)
[2021-01-10] MEDS: BALSAM PERU/CASTOR OIL 60 GM OINT...G. TP SCH (09:48)
[2021-01-10] MEDS: CYANOCOBALAMIN INJ 1,000 MCG/ML VIAL IM SCH (12:21)
[2021-01-10] MEDS: ACETAZOLAMIDE 500 MG CAP PO SCH ×2 (13:11→22:30)
[2021-01-10] MEDS: IRON SUCROSE 100 MG in SODIUM CHLORIDE 0.9% 100 ML 100 ML IV SCH (13:11)
[2021-01-10] MEDS ORDERED: ACETAZOLAMIDE 250 MG TAB ONE (22:10)
[2021-01-10] MEDS: INSULIN GLARGINE 100 UNITS/ML VIAL SQ SCH (23:00)
[2021-01-11] VITALS (18 sets, daily range): BP systolic 114–187; BP diastolic 6–92
[2021-01-11] MEDS: VANCOMYCIN 1GM/NS 250 ML 250 ML IV SCH ×2 (01:30→14:08)
[2021-01-11] MEDS ORDERED: MAGNESIUM HYDROXIDE 30 ML UDC PO ONE (02:15)
[2021-01-11 06:06] LABS: BASOPHILS # (AUTO) 0.1 (0.0-0.1); BASOPHILS % 0.4 % (0.0-1.0); EOSINOPHILS # (AUTO) 0.4 (0.0-0.4); EOSINOPHILS % 2.7 % (0.0-6.0); HEMATOCRIT 31.6 % (38.2-49.6); HEMOGLOBIN 9.8 g/dL (14.0-18.0); LYMPHOCYTES # (AUTO) 1.2 (1.0-3.2); LYMPHOCYTES % 8.5 % (18.0-39.1); MEAN CORPUSCULAR HEMOGLOBIN 29.3 pg (28-32); MEAN CORPUSCULAR VOLUME 94.3 fL (81-99); MONOCYTES # (AUTO) 0.8 (0.2-0.8); MONOCYTES % 5.5 % (4.4-11.3); NEUTROPHILS # (AUTO) 11.4 (2.1-6.9); NEUTROPHILS % 82.1 % (38.7-80.0); PLATELET COUNT 535 x10e3/uL (140-360); RED BLOOD COUNT 3.35 x10e6/uL (4.3-5.7); RED CELL DISTRIBUTION WIDTH 13.6 % (11.7-14.4)
[2021-01-11 06:32] LABS: ALANINE AMINOTRANSFERASE 24 IU/L (0-55); ALBUMIN 1.9 g/dL (3.5-5.0); ALBUMIN/GLOBULIN RATIO 0.4 (0.8-2.0); ALKALINE PHOSPHATASE 94 IU/L (40-150); ANION GAP 10.9 mmol/L (8-16); BLOOD UREA NITROGEN 16 mg/dL (7-26); BUN/CREATININE RATIO 29 (6-25); CALCIUM 8.6 mg/dL (8.4-10.2); CARBON DIOXIDE 28 mmol/L (22-29); CHLORIDE 105 mmol/L (98-107); CREATININE, SERUM 0.55 mg/dL (0.72-1.25); EST GLOMERULAR FILTRATION RATE > 60 ML/MIN (60-); GLUCOSE 214 mg/dL (74-118); POTASSIUM 3.9 mmol/L (3.5-5.1); SODIUM 140 mmol/L (136-145)
[2021-01-11] MEDS: INSULIN REGULAR, HUMAN 100 UNIT/1 ML 3ML VIAL SQ SCH ×4 (07:24→18:15)
[2021-01-11 08:24] LABS: ABG HCO3 30 mmol/L (22-26); ABG PCO2 54 mmHg (35-45); ABG PH 7.35 (7.35-7.45); ABG PO2 109 mmHg (80-105); ABG TCO2 31
[2021-01-11] MEDS: CYANOCOBALAMIN INJ 1,000 MCG/ML VIAL IM SCH (08:41)
[2021-01-11] MEDS: IRON SUCROSE 100 MG in SODIUM CHLORIDE 0.9% 100 ML 100 ML IV SCH (08:42)
[2021-01-11] MEDS: FAMOTIDINE 20 MG/2 ML VIAL IV SCH (08:42)
[2021-01-11] MEDS: ENOXAPARIN SOD INJ 60 MG/0.6 ML SYR SC SCH ×2 (08:43→21:05)
[2021-01-11] MEDS: CHOLECALCIFEROL 400 UNIT TAB PO SCH (08:43)
[2021-01-11] MEDS: ASCORBIC ACID 500 MG TAB PO SCH ×2 (08:43→18:09)
[2021-01-11] MEDS: ZINC SULFATE 220 MG CAP PO SCH (08:43)
[2021-01-11] MEDS: NYSTATIN 15 GM POWDER UD BTL TOP SCH ×2 (08:44→18:09)
[2021-01-11] MEDS: BALSAM PERU/CASTOR OIL 60 GM OINT...G. TP SCH (08:45)
[2021-01-11] MEDS: ACETAZOLAMIDE 500 MG CAP PO SCH (09:00)
[2021-01-11] MEDS ORDERED: ACETAZOLAMIDE 250 MG TAB PO SCH (10:00)
[2021-01-11] MEDS ORDERED: MEROPENEM 1GRAM 1 GM in SODIUM CHLORIDE 0.9% 100 ML 100 ML IV SCH (12:00)
[2021-01-11 12:27] LABS: ABG HCO3 28 mmol/L (22-26); ABG PCO2 55 mmHg (35-45); ABG PH 7.31 (7.35-7.45); ABG PO2 110 mmHg (80-105); ABG TCO2 29
[2021-01-11] MEDS: INSULIN GLARGINE 100 UNITS/ML VIAL SQ SCH (21:05)
[2021-01-12] VITALS (25 sets, daily range): BP systolic 85–159; BP diastolic 45–83
[2021-01-12 04:45] LABS: BASOPHILS # (AUTO) 0.1 (0.0-0.1); BASOPHILS % 0.3 % (0.0-1.0); EOSINOPHILS # (AUTO) 0.2 (0.0-0.4); EOSINOPHILS % 1.1 % (0.0-6.0); HEMATOCRIT 33.3 % (38.2-49.6); HEMOGLOBIN 10.7 g/dL (14.0-18.0); LYMPHOCYTES # (AUTO) 1.1 (1.0-3.2); LYMPHOCYTES % 6.4 % (18.0-39.1); MEAN CORPUSCULAR HEMOGLOBIN 29.7 pg (28-32); MEAN CORPUSCULAR HGB CONC 32.1 g/dL (31-35); MEAN CORPUSCULAR VOLUME 92.5 fL (81-99); MONOCYTES % 5.7 % (4.4-11.3); NEUTROPHILS # (AUTO) 14.3 (2.1-6.9); PLATELET COUNT 627 x10e3/uL (140-360); RED CELL DISTRIBUTION WIDTH 13.2 % (11.7-14.4)
[2021-01-12 05:08] LABS: ALANINE AMINOTRANSFERASE 21 IU/L (0-55); ALBUMIN 2.2 g/dL (3.5-5.0); ALBUMIN/GLOBULIN RATIO 0.5 (0.8-2.0); ALKALINE PHOSPHATASE 94 IU/L (40-150); ANION GAP 10.5 mmol/L (8-16); BLOOD UREA NITROGEN 20 mg/dL (7-26); BUN/CREATININE RATIO 37 (6-25); CALCIUM 8.7 mg/dL (8.4-10.2); CARBON DIOXIDE 28 mmol/L (22-29); CHLORIDE 108 mmol/L (98-107); CREATININE, SERUM 0.54 mg/dL (0.72-1.25); EST GLOMERULAR FILTRATION RATE > 60 ML/MIN (60-); GLUCOSE 147 mg/dL (74-118); POTASSIUM 3.5 mmol/L (3.5-5.1); SODIUM 143 mmol/L (136-145)
[2021-01-12] MEDS: ACETAMINOPHEN 325 MG TAB PO PRN ×2 (05:47→22:49)
[2021-01-12] MEDS: INSULIN REGULAR, HUMAN 100 UNIT/1 ML 3ML VIAL SQ SCH ×4 (06:01→17:50)
[2021-01-12] MEDS: PROPOFOL IV EMULSION 10MG/ML 100 ML IV PRN ×2 (06:15→09:29)
[2021-01-12 08:39] LABS: ABG HCO3 29 mmol/L (22-26); ABG PCO2 50 mmHg (35-45); ABG PH 7.38 (7.35-7.45); ABG PO2 82 mmHg (80-105); ABG TCO2 31
[2021-01-12] MEDS: CYANOCOBALAMIN INJ 1,000 MCG/ML VIAL IM SCH (09:00)
[2021-01-12] MEDS: IRON SUCROSE 100 MG in SODIUM CHLORIDE 0.9% 100 ML 100 ML IV SCH (09:00)
[2021-01-12] MEDS: CHOLECALCIFEROL 400 UNIT TAB PO SCH (09:27)
[2021-01-12] MEDS: ZINC SULFATE 220 MG CAP PO SCH (09:27)
[2021-01-12] MEDS: NYSTATIN 15 GM POWDER UD BTL TOP SCH ×2 (09:27→18:29)
[2021-01-12] MEDS: ENOXAPARIN SOD INJ 60 MG/0.6 ML SYR SC SCH ×2 (09:27→20:47)
[2021-01-12] MEDS: BALSAM PERU/CASTOR OIL 60 GM OINT...G. TP SCH (09:27)
[2021-01-12] MEDS: ASCORBIC ACID 500 MG TAB PO SCH ×2 (09:27→18:29)
[2021-01-12] MEDS: FAMOTIDINE 20 MG/2 ML VIAL IV SCH (09:27)
[2021-01-12] MEDS ORDERED: LACTATED RINGER'S 500 ML INJ ONE (14:30)
[2021-01-12] MEDS ORDERED: PROPOFOL IV EMULSION 10MG/ML 100 ML IV PRN (18:45)
[2021-01-12] MEDS: INSULIN GLARGINE 100 UNITS/ML VIAL SQ SCH (20:50)
[2021-01-13] VITALS (21 sets, daily range): BP systolic 86–164; BP diastolic 47–79
[2021-01-13] MEDS: INSULIN REGULAR, HUMAN 100 UNIT/1 ML 3ML VIAL SQ SCH ×4 (00:13→18:21)
[2021-01-13 05:05] LABS: BASOPHILS # (AUTO) 0.1 (0.0-0.1); BASOPHILS % 0.8 % (0.0-1.0); EOSINOPHILS # (AUTO) 0.5 (0.0-0.4); EOSINOPHILS % 4.3 % (0.0-6.0); HEMATOCRIT 30.3 % (38.2-49.6); HEMOGLOBIN 9.8 g/dL (14.0-18.0); LYMPHOCYTES # (AUTO) 1.5 (1.0-3.2); LYMPHOCYTES % 12.2 % (18.0-39.1); MEAN CORPUSCULAR HEMOGLOBIN 29.3 pg (28-32); MEAN CORPUSCULAR HGB CONC 32.3 g/dL (31-35); MEAN CORPUSCULAR VOLUME 90.4 fL (81-99); MONOCYTES # (AUTO) 0.9 (0.2-0.8); MONOCYTES % 7.4 % (4.4-11.3); NEUTROPHILS # (AUTO) 8.9 (2.1-6.9); NEUTROPHILS % 74.8 % (38.7-80.0); PLATELET COUNT 588 x10e3/uL (140-360); RED BLOOD COUNT 3.35 x10e6/uL (4.3-5.7); RED CELL DISTRIBUTION WIDTH 13.8 % (11.7-14.4)
[2021-01-13 05:28] LABS: ALANINE AMINOTRANSFERASE 18 IU/L (0-55); ALBUMIN 2.1 g/dL (3.5-5.0); ALBUMIN/GLOBULIN RATIO 0.5 (0.8-2.0); ALKALINE PHOSPHATASE 81 IU/L (40-150); ANION GAP 12.4 mmol/L (8-16); BLOOD UREA NITROGEN 26 mg/dL (7-26); BUN/CREATININE RATIO 49 (6-25); CALCIUM 8.9 mg/dL (8.4-10.2); CARBON DIOXIDE 31 mmol/L (22-29); CHLORIDE 106 mmol/L (98-107); CREATININE, SERUM 0.53 mg/dL (0.72-1.25); EST GLOMERULAR FILTRATION RATE > 60 ML/MIN (60-); GLUCOSE 137 mg/dL (74-118); POTASSIUM 3.4 mmol/L (3.5-5.1); SODIUM 146 mmol/L (136-145)
[2021-01-13] MEDS ORDERED: POTASSIUM CHLORIDE 20MEQ/100ML 200 ML IV ONE (08:00)
[2021-01-13] MEDS: CHOLECALCIFEROL 400 UNIT TAB PO SCH (08:19)
[2021-01-13] MEDS: ZINC SULFATE 220 MG CAP PO SCH (08:19)
[2021-01-13] MEDS: FAMOTIDINE 20 MG/2 ML VIAL IV SCH (08:19)
[2021-01-13] MEDS: ENOXAPARIN SOD INJ 60 MG/0.6 ML SYR SC SCH ×2 (08:19→20:20)
[2021-01-13] MEDS: ASCORBIC ACID 500 MG TAB PO SCH ×2 (08:19→17:27)
[2021-01-13] MEDS: BALSAM PERU/CASTOR OIL 60 GM OINT...G. TP SCH (08:19)
[2021-01-13] MEDS ORDERED: DOCUSATE SODIUM LIQD 100 MG/10 ML UDC NG SCH (09:00)
[2021-01-13 10:40] LABS: ABG HCO3 34 mmol/L (22-26); ABG PCO2 50 mmHg (35-45); ABG PH 7.45 (7.35-7.45); ABG PO2 88 mmHg (80-105); ABG TCO2 35.2
[2021-01-13 10:41] LABS: ABG OXYGEN SATURATION 96.9 % (95-98)
[2021-01-13] MEDS: INSULIN GLARGINE 100 UNITS/ML VIAL SQ SCH (20:15)
[2021-01-13] MEDS ORDERED: QUETIAPINE FUMARATE 25 MG TAB PO SCH (21:00)
== END 2021-01-13 20:30 | DRG 4 ==
LOC: ER 14:31 → ERHOLD 16:38 → IMCU 23:22 → OBSVTOIN 12-18 10:04 → ICU 12-21 23:00 → COVIDICU 12-25 10:45
PROVIDERS: ADMIT Internal Medicine; ATTEND Internal Medicine
PROC: 3E0333Z Introduction of Anti-inflammatory into Peripheral Vein, Percutaneous Approach (ICD-10-PCS; 2020-12-18)
PROC: XW033E5 Introduction of Remdesivir Anti-infective into Peripheral Vein, Percutaneous Approach, New Technology Group 5 (ICD-10-PCS; 2020-12-18)
PROC: 5A1955Z Respiratory Ventilation, Greater than 96 Consecutive Hours (ICD-10-PCS; 2020-12-22)
PROC: 0BH17EZ Insertion of Endotracheal Airway into Trachea, Via Natural or Artificial Opening (ICD-10-PCS; 2020-12-22)
PROC: 3E043XZ Introduction of Vasopressor into Central Vein, Percutaneous Approach (ICD-10-PCS; 2020-12-22)
PROC: 03HY32Z Insertion of Monitoring Device into Upper Artery, Percutaneous Approach (ICD-10-PCS; 2020-12-23)
PROC: 4A133B1 Monitoring of Arterial Pressure, Peripheral, Percutaneous Approach (ICD-10-PCS; 2020-12-23)
PROC: 4A133J1 Monitoring of Arterial Pulse, Peripheral, Percutaneous Approach (ICD-10-PCS; 2020-12-23)
PROC: 0DH63UZ Insertion of Feeding Device into Stomach, Percutaneous Approach (ICD-10-PCS; 2021-01-08)
PROC: 0DJ08ZZ Inspection of Upper Intestinal Tract, Via Natural or Artificial Opening Endoscopic (ICD-10-PCS; 2021-01-08)
PROC: 0B113F4 Bypass Trachea to Cutaneous with Tracheostomy Device, Percutaneous Approach (ICD-10-PCS; principal; 2021-01-08 11:34)
DX: A41.89 Other specified sepsis (principal); U07.1 COVID-19; J12.82 Pneumonia due to coronavirus disease 2019; R65.21 Severe sepsis with septic shock; I50.33 Acute on chronic diastolic (congestive) heart failure; K65.1 Peritoneal abscess; J80 Acute respiratory distress syndrome; N17.9 Acute kidney failure, unspecified; E87.1 Hypo-osmolality and hyponatremia; K22.10 Ulcer of esophagus without bleeding; E44.0 Moderate protein-calorie malnutrition; B19.9 Unspecified viral hepatitis without hepatic coma; E11.65 Type 2 diabetes mellitus with hyperglycemia; E78.5 Hyperlipidemia, unspecified; E88.09 Other disorders of plasma-protein metabolism, not elsewhere classified; K29.70 Gastritis, unspecified, without bleeding; D64.9 Anemia, unspecified; I48.0 Paroxysmal atrial fibrillation; Z68.23 Body mass index [BMI] 23.0-23.9, adult; D50.0 Iron deficiency anemia secondary to blood loss (chronic); I11.0 Hypertensive heart disease with heart failure; Z79.84 Long term (current) use of oral hypoglycemic drugs
CPT/HCPCS: 31500; 36415; 36569; 36600; 43246; 71045; 71260; 74018; 80053; 80202; 81001; 82550; 82553; 82607; 82746; 82805; 82948; 83036; 83540; 84466; 84484; 85007; 85025; 85027; 85045; 85610; 85730; 86850; 86900; 87040; 87070; 87205; 93005; 93306; 93970; 94002; 94003; 96361; 96372; 99251; 99285; G0378; J0330; J0360; J0456; J0696; J1100; J1650; J1756; J1815; J1817; J1940; J2185; J2250; J2405; J3370; J3420; J3480; J7030; J7050; J7121; J7512; P9017; P9047; Q9967; U0002

== ENCOUNTER → 2021-04-29 | Outpatient (CLI) | payer BC ==
[~2021-04-29] MED LIST: ENALAPRIL MALE2.5 MG PO; GLYBURIDE5 MG PO; JANUVIA100 MG PO; METFORMIN HCL1000 MG PO; PIOGLITAZONE HC15 MG PO; SIMVASTATIN20 MG PO
== END ==
LOC: RAD 15:38
PROVIDERS: ATTEND Internal Medicine Critical Care Medicine
DX: Z09 Encounter for follow-up examination after completed treatment for conditions other than malignant neoplasm (principal); J18.9 Pneumonia, unspecified organism
CPT/HCPCS: 71046

== ENCOUNTER 2024-11-17 13:54 | Emergency (ER) | payer BC ==
[~2024-11-17] VITALS: Ht 165.1 cm; Wt 81.6 kg
[2024-11-17 14:25] VITALS: TEMP 98.2
[2024-11-17 14:45] VITALS: PULSE 88; RESP 16; O2SAT 96
== END 2024-11-17 15:07 | disposition home or self-care (01) ==
LOC: ER 14:48
DX: R51.9 Headache, unspecified (principal); I10 Essential (primary) hypertension; E11.9 Type 2 diabetes mellitus without complications; E78.5 Hyperlipidemia, unspecified
CPT/HCPCS: 99283